=== PATIENT | female | born 1975 | race Caucasian/White ===

== ENCOUNTER 2016-10-22 07:11 | Emergency (ER) | payer BC ==
[2016-10-22 07:19] LABS: Glucose,Whole Blood 88 mg/dL (75-99)
--- NOTE | 2016-10-22 07:25 | ED ---
General Adult HPI - General Stated complaint: unresponsive Time Seen by Provider: 10/22/16 07:11 Source: RN notes reviewed - History of Present Illness Initial comments: Is a 41-year-old female who was not acting right at a store and then she slowly collapsed in a letter to the ground without injury. Since then she has been not responding however all her vitals are normal. Patient is not to mix any history because she still not responsive however it appears she is faking it because she looks away when you open her eyelids and she moves her head and flutters her eyes when you put ammonia under her nose. We have no other history at this time until the patient cooperates - Related Data Previous Rx's Medication Instructions Recorded Methocarbamol [Robaxin-750] 750 mg PO TID PRN #30 tablet 06/16/16 Allergies Allergy/AdvReac Type Severity Reaction Status Date / Time amoxicillin Allergy Rash/Hives Verified 10/22/16 07:19 Penicillins Allergy Rash/Hives Verified 10/22/16 07:19 Sulfa (Sulfonamide Allergy Rash/Hives Verified 10/22/16 07:19 Antibiotics) Review of Systems ROS Statement: Those systems with pertinent positive or pertinent negative responses have been documented in the HPI. ROS Other: All systems not noted in ROS Statement are negative. Past Medical History Past Medical History: No Reported History, Skin Disorder, Thyroid Disorder Additional Past Medical History / Comment(s): lipid storage disease, abdominal wound History of Any Multi-Drug Resistant Organisms: MRSA Date of last positivie culture/infection: 04/20/15 MDRO Source:: Abdomen Past Surgical History: Appendectomy Additional Past Surgical History / Comment(s): biopsy of the left shoulder and right leg by Dr. Sams for diagnosis of lipid storage disease Past Anesthesia/Blood Transfusion Reactions: No Reported Reaction Additional Past Anesthesia/Blood Transfusion Reaction / Comment(s): never received either Past Psychological History: No Psychological Hx Reported Smoking Status: Never smoker Past Alcohol Use History: None Reported Additional Past Alcohol Use History / Comment(s): Patient states she is a nonsmoker. She denies any medical marijuana, marijuana, street drug or alcohol use. She lives at home with her . They do not have any children. There is a bagel in the home. She denies any recent travel. She denies any service. She works at [employer] Past Drug Use History: None Reported - Past Family History Father History Unknown: Yes Additional Family Medical History / Comment(s): pt adopted Mother History Unknown: Yes Additional Family Medical History / Comment(s): pt adopted General Exam - General Exam Comments Initial Comments: GENERAL: Patient is well-developed and well-nourished. Patient is nontoxic and well- hydrated and is in no acute distress. ENT: Neck is soft and supple. No significant lymphadenopathy is noted. Oropharynx is clear. Moist mucous membranes. Neck has full range of motion without eliciting any pain. EYES: The sclera were anicteric and conjunctiva were pink and moist. Extraocular movements were intact and pupils were equal round and reactive to light. Eyelids were unremarkable. PULMONARY: Unlabored respirations. Good breath sounds bilaterally. No audible rales rhonchi or wheezing was noted. CARDIOVASCULAR: There is a regular rate and rhythm without any murmurs gallops or rubs. ABDOMEN: Soft and nontender with normal bowel sounds. No palpable organomegaly was noted. There is no palpable pulsatile mass. SKIN: Skin is clear with no lesions or rashes and otherwise unremarkable. NEUROLOGIC: Patient will not answer questions though I believe she can. MUSCULOSKELETAL: Normal extremities with adequate strength and full range of motion. No lower extremity swelling or edema. No calf tenderness. LYMPHATICS: No significant lymphadenopathy is noted PSYCHIATRIC: Unable to evaluate Course Vital Signs 10/22/16 10/22/16 10/22/16 07:12 07:23 07:35 Temperature 97.6 F Pulse Rate 85 89 85 Respiratory 16 18 18 Rate Blood Pressure 127/71 128/75 128/75 O2 Sat by Pulse 100 100 100 Oximetry Medical Decision Making - Medical Decision Making EKG shows normal sinus rhythm at 97 bpm MO interval 270 QRS is 70 QT interval 346 QTC is 439. Patient's EKG shows no ST segment elevation or depression or T- wave abdomen is noted. I spoke with Dr. 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 He was in agreement that her symptoms did not seem consistent all with her disease. Shortly after patient was breathing and ammonia she was alert and oriented 3. Of course she told me at this point that this was all because of her current team deficiency even though I spoke with Dr. Sams and he assured me it was not. - Lab Data Result diagrams: 10/22/16 07:15 10/22/16 07:15 Lab Results 10/22/16 10/22/16 10/22/16 Range/Units 07:14 07:15 07:15 WBC 3.9 (3.8-10.6) k/uL RBC 4.60 (3.80-5.40) m/uL Hgb 12.9 (11.4-16.0) gm/dL Hct 39.6 (34.0-46.0) % MCV 86.1 (80.0-100.0) fL MCH 28.1 (25.0-35.0) pg MCHC 32.6 (31.0-37.0) g/dL RDW 12.9 (11.5-15.5) % Plt Count 202 (150-450) k/uL Neutrophils % 59 % Lymphocytes % 24 % Monocytes % 10 % Eosinophils % 2 % Basophils % 2 % Neutrophils # 2.3 (1.3-7.7) k/uL Lymphocytes # 0.9 L (1.0-4.8) k/uL Monocytes # 0.4 (0-1.0) k/uL Eosinophils # 0.1 (0-0.7) k/uL Basophils # 0.1 (0-0.2) k/uL Sodium 143 (137-145) mmol/L Potassium 3.9 (3.5-5.1) mmol/L Chloride 107 (98-107) mmol/L Carbon Dioxide 27 (22-30) mmol/L Anion Gap 9 mmol/L BUN 15 (7-17) mg/dL Creatinine 0.66 (0.52-1.04) mg/dL Est GFR (MDRD) Af Amer >60 (>60 ml/min/1.73 sqM) Est GFR (MDRD) Non-Af >60 (>60 ml/min/1.73 sqM) Glucose 96 (74-99) mg/dL POC Glucose (mg/dL) 88 (75-99) mg/dL POC Glu Speedboat [employer] ID ZhouSeferino santosw Plasma Lactic Acid Tino (0.7-2.0) mmol/L Calcium 9.1 (8.4-10.2) mg/dL Magnesium 2.1 (1.6-2.3) mg/dL Total Bilirubin 0.5 (0.2-1.3) mg/dL AST 27 (14-36) U/L ALT 38 (9-52) U/L Alkaline Phosphatase 62 (38-126) U/L Troponin I (0.000-0.034) ng/mL Total Protein 7.6 (6.3-8.2) g/dL Albumin 3.8 (3.5-5.0) g/dL 10/22/16 10/22/16 Range/Units 07:15 07:44 WBC (3.8-10.6) k/uL RBC (3.80-5.40) m/uL Hgb (11.4-16.0) gm/dL Hct (34.0-46.0) % MCV (80.0-100.0) fL MCH (25.0-35.0) pg MCHC (31.0-37.0) g/dL RDW (11.5-15.5) % Plt Count (150-450) k/uL Neutrophils % % Lymphocytes % % Monocytes % % Eosinophils % % Basophils % % Neutrophils # (1.3-7.7) k/uL Lymphocytes # (1.0-4.8) k/uL Monocytes # (0-1.0) k/uL Eosinophils # (0-0.7) k/uL Basophils # (0-0.2) k/uL Sodium (137-145) mmol/L Potassium (3.5-5.1) mmol/L Chloride (98-107) mmol/L Carbon Dioxide (22-30) mmol/L Anion Gap mmol/L BUN (7-17) mg/dL Creatinine (0.52-1.04) mg/dL Est GFR (MDRD) Af Amer (>60 ml/min/1.73 sqM) Est GFR (MDRD) Non-Af (>60 ml/min/1.73 sqM) Glucose (74-99) mg/dL POC Glucose (mg/dL) (75-99) mg/dL POC Glu Speedboat Driver ID Plasma Lactic Acid Tino 1.0 (0.7-2.0) mmol/L Calcium (8.4-10.2) mg/dL Magnesium (1.6-2.3) mg/dL Total Bilirubin (0.2-1.3) mg/dL AST (14-36) U/L ALT (9-52) U/L Alkaline Phosphatase (38-126) U/L Troponin I <0.012 (0.000-0.034) ng/mL Total Protein (6.3-8.2) g/dL Albumin (3.5-5.0) g/dL Disposition Clinical Impression: Carnitine deficiency, Conversion disorder Disposition: HOME SELF-CARE Condition: Good Instructions: Altered Mental Status (ED) Referrals: Jose Francisco Simental MD [Primary Care Provider] - 1-2 days Time of Disposition: 08:59
[2016-10-22 07:27] LABS: Basophils # (A) 0.1 k/uL (0-0.2); Basophils % (A) 2 %; CH 28.1; CHCM 32.8; Eosinophils # (A) 0.1 k/uL (0-0.7); Eosinophils % (A) 2 %; HCT 39.6 % (34.0-46.0); HDW 2.76; HGB 12.9 gm/dL (11.4-16.0); Luc # (Auto) 0.14; Luc % (Auto) 4; Lymphocytes # (A) 0.9 k/uL (1.0-4.8); Lymphocytes % (A) 24 %; MCH 28.1 pg (25.0-35.0); MCHC 32.6 g/dL (31.0-37.0); MCV 86.1 fL (80.0-100.0); Mean Platelet Volume 7.7; Monocytes # (A) 0.4 k/uL (0-1.0); Monocytes % (A) 10 %; Neutrophils # (A) 2.3 k/uL (1.3-7.7); Neutrophils % (A) 59 %; RDW 12.9 % (11.5-15.5); WBC 3.9 k/uL (3.8-10.6); WBC (Perox) 3.88
[2016-10-22 07:44] LABS: ALT 38 U/L (9-52); AST 27 U/L (14-36); Alkaline Phosphatase 62 U/L (38-126); Anion Gap 9 mmol/L; Blood Urea Nitrogen 15 mg/dL (7-17); Calcium 9.1 mg/dL (8.4-10.2); Carbon Dioxide 27 mmol/L (22-30); Chloride 107 mmol/L (98-107); Glucose 96 mg/dL (74-99); Magnesium 2.1 mg/dL (1.6-2.3); Non-African American GFR(MDRD) >60 (>60 ml/min/1.73 sqM); Potassium 3.9 mmol/L (3.5-5.1); Sodium 143 mmol/L (137-145); Total Bilirubin 0.5 mg/dL (0.2-1.3); Total Protein 7.6 g/dL (6.3-8.2)
[2016-10-22 09:40] VITALS: BP 123/67; PULSE 88; RESP 16; TEMP 97.4
== END 2016-10-22 09:40 | disposition home or self-care (01) ==
LOC: EC 07:11
DX: F44.4 Conversion disorder with motor symptom or deficit (principal); E71.40 Disorder of carnitine metabolism, unspecified; Z88.0 Allergy status to penicillin; Z88.2 Allergy status to sulfonamides
CPT/HCPCS: 36415; 80053; 83605; 83735; 84484; 85025; 93005; 99284

== ENCOUNTER 2018-08-28 00:06 | Emergency (ER) | payer BC ==
[2018-08-28 00:11] VITALS: RESP 18
[2018-08-28] MEDS ORDERED: SODIUM CHLORIDE 0.9% 2,000 ML IV STA (00:16)
[2018-08-28 00:54] LABS: Basophils % (A) 0 %; Eosinophils # (A) 0.1 k/uL (0-0.7); Eosinophils % (A) 2 %; HCT 46.6 % (34.0-46.0); Lymphocytes # (A) 0.9 k/uL (1.0-4.8); Lymphocytes % (A) 21 %; MCHC 32.1 g/dL (31.0-37.0); MCV 80.9 fL (80.0-100.0); Mean Platelet Volume 7.7; Monocytes # (A) 0.3 k/uL (0-1.0); Monocytes % (A) 7 %; Neutrophils % (A) 69 %; Platelet Count 238 k/uL (150-450); RBC 5.76 m/uL (3.80-5.40); RDW 13.7 % (11.5-15.5); WBC 4.4 k/uL (3.8-10.6)
[2018-08-28 00:54] LABS: Appearance,Urine Clear (Clear); Bilirubin,Urine Negative (Negative); Blood,Urine Negative (Negative); Color,Urine Yellow; Glucose,Urine (UA) Negative (Negative); Ketones,Urine Negative (Negative); Leukocyte Esterase,Urine Negative (Negative); Nitrite,Urine Negative (Negative); Protein,Urine Negative (Negative); Specific Gravity,Urine 1.022 (1.001-1.035); Urobilinogen,Urine <2.0 mg/dL (<2.0)
[2018-08-28] MEDS ORDERED: ONDANSETRON 4 MG/2 ML VIAL IVP STA (00:56)
[2018-08-28 01:20] LABS: ALT 47 U/L (9-52); AST 32 U/L (14-36); Albumin 4.5 g/dL (3.5-5.0); Alkaline Phosphatase 94 U/L (38-126); Anion Gap 10 mmol/L; Blood Urea Nitrogen 22 mg/dL (7-17); Carbon Dioxide 21 mmol/L (22-30); Chloride 110 mmol/L (98-107); Glucose 107 mg/dL (74-99); Magnesium 1.9 mg/dL (1.6-2.3); Potassium 4.6 mmol/L (3.5-5.1); Sodium 141 mmol/L (137-145); Total Bilirubin 0.5 mg/dL (0.2-1.3); Total Protein 8.7 g/dL (6.3-8.2)
--- NOTE | 2018-08-28 01:31 | ED ---
Nausea/Vomiting/Diarrhea HPI - General Chief complaint: Nausea/Vomiting/Diarrhea Stated complaint: Diarrhea Time Seen by Provider: 08/28/18 00:16 Source: patient Mode of arrival: ambulatory Limitations: no limitations - History of Present Illness Initial comments: Suzanna is a pleasant 43 yo female who presents to the ED with complaint of 12h of diarrhea. Patient reports she has developed rectal discomfort due to frequent stools. She also states she has been having nausea without vomiting and malodorous burps. Patient states she has a history of episodes of diarrhea lasting 3-4 days at a time but has never seen GI for this. She has no known underlying GI pathology or food allergies. She denies any international travel or outdoor activities that would put her at risk of infectious diarrhea. In addition she denies any recent antibiotic use or history of c-diff. - Related Data Home Medications Medication Instructions Recorded Confirmed Aspirin 325 mg PO DAILY PRN 10/22/16 10/22/16 L-Carnitine 1 dose PO Q6H PRN 10/22/16 10/22/16 Previous Rx's Medication Instructions Recorded Dicyclomine [Bentyl] 20 mg PO QID #20 tablet 10/25/17 Ondansetron Odt [Zofran ODT] 4 mg PO Q8HR PRN #20 tab 10/25/17 Dicyclomine [Bentyl] 10 mg PO QID #20 capsule 08/28/18 Allergies Allergy/AdvReac Type Severity Reaction Status Date / Time amoxicillin Allergy Rash/Hives Verified 08/28/18 00:11 doxycycline Allergy Rash/Hives Verified 08/28/18 00:11 Penicillins Allergy Rash/Hives Verified 08/28/18 00:11 Sulfa (Sulfonamide Allergy Rash/Hives Verified 08/28/18 00:11 Antibiotics) Review of Systems ROS Statement: Those systems with pertinent positive or pertinent negative responses have been documented in the HPI. ROS Other: All systems not noted in ROS Statement are negative. Past Medical History Past Medical History: Skin Disorder, Thyroid Disorder Additional Past Medical History / Comment(s): lipid storage disease, abdominal wound History of Any Multi-Drug Resistant Organisms: MRSA Date of last positivie culture/infection: 04/20/15 MDRO Source:: Abdomen Past Surgical History: Appendectomy Additional Past Surgical History / Comment(s): biopsy of the left shoulder and right leg by Dr. Sams for diagnosis of lipid storage disease Past Anesthesia/Blood Transfusion Reactions: No Reported Reaction Additional Past Anesthesia/Blood Transfusion Reaction / Comment(s): never received either Past Psychological History: No Psychological Hx Reported Smoking Status: Never smoker Past Alcohol Use History: None Reported Past Drug Use History: None Reported - Past Family History Father History Unknown: Yes Additional Family Medical History / Comment(s): pt adopted Mother History Unknown: Yes Additional Family Medical History / Comment(s): pt adopted General Exam - General Exam Comments Initial Comments: Physical Exam GENERAL: Patient is well-developed and well-nourished. Patient is nontoxic but appears mildly dehydrated HENT: Normocephalic, Atraumatic. This membranes are dry, appears mildly dehydrated EYES: PERRL, EOMI PULMONARY: Unlabored respirations. No audible rales rhonchi or wheezing was noted. CARDIOVASCULAR: There is a regular rate and rhythm without any murmurs gallops or rubs. ABDOMEN: Soft and nontender with hyperactive bowel sounds. SKIN: Skin is clear with no lesions or rashes and otherwise unremarkable. : Deferred NEUROLOGIC: Patient is alert and oriented x3. Moving all extremities spontaneously MUSCULOSKELETAL: Normal extremities with adequate strength and full range of motion. No lower extremity swelling or edema. No calf tenderness. PSYCHIATRIC: Normal psychiatric evaluation. Limitations: no limitations Limitations: no limitations Course Vital Signs 08/28/18 00:07 Temperature 98.3 F Pulse Rate 95 Respiratory 18 Rate Blood Pressure 111/67 O2 Sat by Pulse 95 Oximetry Medical Decision Making - Medical Decision Making Patient was seen and evaluated, history obtained from patient Labs and IVF ordered Zofran and bentyl ordered Patient refused bentyl because she did not want a shot Labs unremarkable Patient received Zofran and IVF, she was re-evaluated, continues to have diarrhea, agreeable to bentyl now Patient was advised to continue supportive care, stay hydrated Patient referred to GI for follow up Return parameters discussed, patient discharged home in stable condition - Lab Data Result diagrams: 08/28/18 00:40 08/28/18 00:40 Lab Results 08/28/18 08/28/18 08/28/18 Range/Units 00:35 00:40 00:40 WBC 4.4 (3.8-10.6) k/uL RBC 5.76 H (3.80-5.40) m/uL Hgb 15.0 (11.4-16.0) gm/dL Hct 46.6 H (34.0-46.0) % MCV 80.9 (80.0-100.0) fL MCH 26.0 (25.0-35.0) pg MCHC 32.1 (31.0-37.0) g/dL RDW 13.7 (11.5-15.5) % Plt Count 238 (150-450) k/uL Neutrophils % 69 % Lymphocytes % 21 % Monocytes % 7 % Eosinophils % 2 % Basophils % 0 % Neutrophils # 3.0 (1.3-7.7) k/uL Lymphocytes # 0.9 L (1.0-4.8) k/uL Monocytes # 0.3 (0-1.0) k/uL Eosinophils # 0.1 (0-0.7) k/uL Basophils # 0.0 (0-0.2) k/uL Sodium 141 (137-145) mmol/L Potassium 4.6 (3.5-5.1) mmol/L Chloride 110 H (98-107) mmol/L Carbon Dioxide 21 L (22-30) mmol/L Anion Gap 10 mmol/L BUN 22 H (7-17) mg/dL Creatinine 0.56 (0.52-1.04) mg/dL Est GFR (CKD-EPI)AfAm >90 (>60 ml/min/1.73 sqM) Est GFR (CKD-EPI)NonAf >90 (>60 ml/min/1.73 sqM) Glucose 107 H (74-99) mg/dL Calcium 10.0 (8.4-10.2) mg/dL Magnesium 1.9 (1.6-2.3) mg/dL Total Bilirubin 0.5 (0.2-1.3) mg/dL AST 32 (14-36) U/L ALT 47 (9-52) U/L Alkaline Phosphatase 94 (38-126) U/L Total Protein 8.7 H (6.3-8.2) g/dL Albumin 4.5 (3.5-5.0) g/dL Urine Color Yellow Urine Appearance Clear (Clear) Urine pH 5.0 (5.0-8.0) Ur Specific Spring 1.022 (1.001-1.035) Urine Protein Negative (Negative) Urine Glucose (UA) Negative (Negative) Urine Ketones Negative (Negative) Urine Blood Negative (Negative) Urine Nitrite Negative (Negative) Urine Bilirubin Negative (Negative) Urine Urobilinogen <2.0 (<2.0) mg/dL Ur Leukocyte Esterase Negative (Negative) Disposition Clinical Impression: Diarrhea Disposition: HOME SELF-CARE Condition: Stable Instructions (If sedation given, give patient instructions): Acute Diarrhea (ED ) Prescriptions: Dicyclomine [Bentyl] 10 mg PO QID #20 capsule Is patient prescribed a controlled substance at d/c from ED?: No Referrals: Jose Francisco Simental MD [Primary Care Provider] - 1-2 days
[2018-08-28] MEDS: DICYCLOMINE 10 MG/ML 2 ML AMP IM STA ×2 (01:54→03:41)
[2018-08-28 04:30] VITALS: BP 113/78; PULSE 74; TEMP 98.2
== END 2018-08-28 04:08 | disposition home or self-care (01) ==
LOC: EC 00:06
DX: R19.7 Diarrhea, unspecified (principal); R11.0 Nausea; Z53.20 Procedure and treatment not carried out because of patient's decision for unspecified reasons; Z88.0 Allergy status to penicillin; Z88.1 Allergy status to other antibiotic agents; Z88.2 Allergy status to sulfonamides; Z90.89 Acquired absence of other organs
CPT/HCPCS: 99284; 96374; 96361 ×2; 96372; 36415; 80053; 83735; 85025; 81003; J0500; J2405

== ENCOUNTER 2018-08-31 22:40 | Emergency (ER) | payer BC ==
[2018-08-31 22:57] VITALS: TEMP 97.7
[2018-09-01] MEDS ORDERED: SODIUM CHLORIDE 0.9% 1,000 ML IV STA (00:37)
[2018-09-01 01:14] LABS: Basophils % (A) 0 %; Eosinophils # (A) 0.1 k/uL (0-0.7); Eosinophils % (A) 4 %; HCT 40.4 % (34.0-46.0); HGB 13.3 gm/dL (11.4-16.0); Lymphocytes # (A) 0.9 k/uL (1.0-4.8); Lymphocytes % (A) 29 %; MCH 26.3 pg (25.0-35.0); MCHC 32.8 g/dL (31.0-37.0); MCV 80.1 fL (80.0-100.0); Mean Platelet Volume 6.9; Monocytes # (A) 0.2 k/uL (0-1.0); Monocytes % (A) 7 %; Neutrophils # (A) 1.7 k/uL (1.3-7.7); Neutrophils % (A) 57 %; Platelet Count 210 k/uL (150-450); RBC 5.05 m/uL (3.80-5.40); RDW 13.4 % (11.5-15.5)
[2018-09-01 01:25] LABS: ALT 53 U/L (9-52); AST 33 U/L (14-36); Albumin 3.7 g/dL (3.5-5.0); Alkaline Phosphatase 100 U/L (38-126); Amylase 49 U/L (30-110); Anion Gap 6 mmol/L; Blood Urea Nitrogen 18 mg/dL (7-17); Calcium 9.3 mg/dL (8.4-10.2); Carbon Dioxide 26 mmol/L (22-30); Chloride 107 mmol/L (98-107); Glucose 99 mg/dL (74-99); Lipase 369 U/L (23-300); Potassium 4.4 mmol/L (3.5-5.1); Sodium 139 mmol/L (137-145); Total Bilirubin 0.5 mg/dL (0.2-1.3); Total Protein 7.3 g/dL (6.3-8.2)
[2018-09-01] MEDS ORDERED: DIPHENOX-ATROP STARTER PACK 8 TAB BTL PO STA (02:04)
[2018-09-01] MEDS ORDERED: LIDOCAINE VISCOUS 2% 15 ML CUP MUCOUS MEM ONE (02:04)
--- NOTE | 2018-09-01 02:06 | ED ---
General Adult HPI - General Source: patient Mode of arrival: ambulatory Limitations: no limitations <Aisha Rivas - Last Filed: 09/01/18 04:00> <Joann Rangel - Last Filed: 09/02/18 03:51> - General Chief complaint: Nausea/Vomiting/Diarrhea Stated complaint: Diarrhea Time Seen by Provider: 09/01/18 00:11 - History of Present Illness Initial comments: 43-year-old female patient presents to the emergency department today for evaluation of diarrhea that started on . Patient states she's had multiple episodes of watery diarrhea daily since its onset. Patient states she does have history of intermittent episodes of diarrhea for the last couple of years. States that she was seen and evaluated here in Friday and was discharged home. She states that symptoms have not improved. States she is now having intense perianal discomfort. States that she has passed some blood in the stool. States that she is having cramping to her bilateral thighs. She denies any fevers or chills with this. Denies any recent travel or sick contacts. Denies any recent antibiotic use. Patient denies any recent rash, shortness breath, chest pain, abdominal pain, nausea, vomiting, back pain, numbness, tingling, dizziness, weakness, hematuria, dysuria, urinary urgency, urinary frequency, headache, visual changes, or any other complaints. (Aisha Rivas) - Related Data Home Medications Medication Instructions Recorded Confirmed Dicyclomine [Bentyl] 20 mg PO QID PRN 08/31/18 08/31/18 Previous Rx's Medication Instructions Recorded Diphenoxylate HCl/Atropine 1 tab PO 5XD PRN 3 Days #15 tab 09/01/18 [Lomotil 2.5-0.025 mg Tablet] Allergies Allergy/AdvReac Type Severity Reaction Status Date / Time amoxicillin Allergy Rash/Hives Verified 08/31/18 23:16 doxycycline Allergy Rash/Hives Verified 08/31/18 23:16 Penicillins Allergy Rash/Hives Verified 08/31/18 23:16 Sulfa (Sulfonamide Allergy Rash/Hives Verified 08/31/18 23:16 Antibiotics) Review of Systems ROS Other: All systems not noted in ROS Statement are negative. <Aisha Rivas - Last Filed: 09/01/18 04:00> ROS Other: All systems not noted in ROS Statement are negative. <Joann Rangel P - Last Filed: 09/02/18 03:51> ROS Statement: Those systems with pertinent positive or pertinent negative responses have been documented in the HPI. Past Medical History Past Medical History: Skin Disorder, Thyroid Disorder Additional Past Medical History / Comment(s): lipid storage disease, abdominal wound History of Any Multi-Drug Resistant Organisms: MRSA Date of last positivie culture/infection: 04/20/15 MDRO Source:: Abdomen Past Surgical History: Appendectomy Additional Past Surgical History / Comment(s): biopsy of the left shoulder and right leg by Dr. Sams for diagnosis of lipid storage disease Past Anesthesia/Blood Transfusion Reactions: No Reported Reaction Additional Past Anesthesia/Blood Transfusion Reaction / Comment(s): never received either Past Psychological History: No Psychological Hx Reported Smoking Status: Never smoker Past Alcohol Use History: None Reported Past Drug Use History: None Reported - Past Family History Father History Unknown: Yes Additional Family Medical History / Comment(s): pt adopted Mother History Unknown: Yes Additional Family Medical History / Comment(s): pt adopted <RobAisha M - Last Filed: 09/01/18 04:00> General Exam Limitations: no limitations General appearance: alert, in no apparent distress, other (Physical well- developed, well-nourished adult female patient in no acute distress. Vital signs upon presentation are temperature 97.7F, pulse 94, respirations 18, blood pressure 120/80, pulse ox 100% on room air.) Eye exam: Present: normal appearance, PERRL, EOMI. Absent: scleral icterus, conjunctival injection, periorbital swelling ENT exam: Present: normal exam, normal oropharynx, mucous membranes moist Respiratory exam: Present: normal lung sounds bilaterally. Absent: respiratory distress, wheezes, rales, rhonchi, stridor Cardiovascular Exam: Present: regular rate, normal rhythm, normal heart sounds. Absent: systolic murmur, diastolic murmur, rubs, gallop, clicks GI/Abdominal exam: Present: soft, tenderness (Lower abdominal tenderness), normal bowel sounds. Absent: distended, guarding, rebound, rigid Neurological exam: Present: alert, oriented X3, CN II-XII intact Psychiatric exam: Present: normal affect, normal mood Skin exam: Present: warm, dry, intact, normal color. Absent: rash <Aisha Rivas - Last Filed: 09/01/18 04:00> Vital Signs 08/31/18 09/01/18 09/01/18 22:54 01:40 03:13 Temperature 97.7 F 97.7 F Pulse Rate 94 89 88 Respiratory 18 16 19 Rate Blood Pressure 120/80 118/71 102/62 O2 Sat by Pulse 100 100 100 Oximetry Medical Decision Making - Lab Data Result diagrams: 09/01/18 01:02 09/01/18 01:02 <Aisha Rivas - Last Filed: 09/01/18 04:00> - Lab Data Result diagrams: 09/01/18 01:02 09/01/18 01:02 <Joann Rangel - Last Filed: 09/02/18 03:51> - Medical Decision Making 43-year-old female patient presented to the emergency department today for evaluation of persistent diarrhea. Physical examination did reveal some mild lower abdominal tenderness. Labs reviewed and are unremarkable. Stool has been sent for culture. Patient will be given Lomotil to assist with symptoms. She is instructed to follow-up with her primary care physician for recheck as soon as possible. Return parameters were discussed in detail. She verbalizes understanding and agrees with this plan. (Aisha Rivas) I was available for consultation in the emergency department. The history and physical exam were done by the midlevel provider. I was consulted for this patient's care. I reviewed the case with the midlevel provider and based on their presentation of the patient, I agree with the assessment, medical decision making and plan of care as documented. (Joann Rangel) - Lab Data Lab Results 09/01/18 09/01/18 09/01/18 Range/Units 01:02 01:02 02:19 WBC 3.0 L (3.8-10.6) k/uL RBC 5.05 (3.80-5.40) m/uL Hgb 13.3 (11.4-16.0) gm/dL Hct 40.4 (34.0-46.0) % MCV 80.1 (80.0-100.0) fL MCH 26.3 (25.0-35.0) pg MCHC 32.8 (31.0-37.0) g/dL RDW 13.4 (11.5-15.5) % Plt Count 210 (150-450) k/uL Neutrophils % 57 % Lymphocytes % 29 % Monocytes % 7 % Eosinophils % 4 % Basophils % 0 % Neutrophils # 1.7 (1.3-7.7) k/uL Lymphocytes # 0.9 L (1.0-4.8) k/uL Monocytes # 0.2 (0-1.0) k/uL Eosinophils # 0.1 (0-0.7) k/uL Basophils # 0.0 (0-0.2) k/uL Sodium 139 (137-145) mmol/L Potassium 4.4 (3.5-5.1) mmol/L Chloride 107 (98-107) mmol/L Carbon Dioxide 26 (22-30) mmol/L Anion Gap 6 mmol/L BUN 18 H (7-17) mg/dL Creatinine 0.50 L (0.52-1.04) mg/dL Est GFR (CKD-EPI)AfAm >90 (>60 ml/min/1.73 sqM) Est GFR (CKD-EPI)NonAf >90 (>60 ml/min/1.73 sqM) Glucose 99 (74-99) mg/dL Calcium 9.3 (8.4-10.2) mg/dL Total Bilirubin 0.5 (0.2-1.3) mg/dL AST 33 (14-36) U/L ALT 53 H (9-52) U/L Alkaline Phosphatase 100 (38-126) U/L Total Protein 7.3 (6.3-8.2) g/dL Albumin 3.7 (3.5-5.0) g/dL Amylase 49 (30-110) U/L Lipase 369 H (23-300) U/L Stool Lactoferrin NEGATIVE (NEGATIVE) C. difficile (EIA) Intrp (Negative) 09/01/18 Range/Units 02:19 WBC (3.8-10.6) k/uL RBC (3.80-5.40) m/uL Hgb (11.4-16.0) gm/dL Hct (34.0-46.0) % MCV (80.0-100.0) fL MCH (25.0-35.0) pg MCHC (31.0-37.0) g/dL RDW (11.5-15.5) % Plt Count (150-450) k/uL Neutrophils % % Lymphocytes % % Monocytes % % Eosinophils % % Basophils % % Neutrophils # (1.3-7.7) k/uL Lymphocytes # (1.0-4.8) k/uL Monocytes # (0-1.0) k/uL Eosinophils # (0-0.7) k/uL Basophils # (0-0.2) k/uL Sodium (137-145) mmol/L Potassium (3.5-5.1) mmol/L Chloride (98-107) mmol/L Carbon Dioxide (22-30) mmol/L Anion Gap mmol/L BUN (7-17) mg/dL Creatinine (0.52-1.04) mg/dL Est GFR (CKD-EPI)AfAm (>60 ml/min/1.73 sqM) Est GFR (CKD-EPI)NonAf (>60 ml/min/1.73 sqM) Glucose (74-99) mg/dL Calcium (8.4-10.2) mg/dL Total Bilirubin (0.2-1.3) mg/dL AST (14-36) U/L ALT (9-52) U/L Alkaline Phosphatase (38-126) U/L Total Protein (6.3-8.2) g/dL Albumin (3.5-5.0) g/dL Amylase (30-110) U/L Lipase (23-300) U/L Stool Lactoferrin (NEGATIVE) C. difficile (EIA) Intrp Negative (Negative) Disposition Is patient prescribed a controlled substance at d/c from ED?: No Time of Disposition: 02:06 <Aisha Rivas - Last Filed: 09/01/18 04:00> <Joann Rangel - Last Filed: 09/02/18 03:51> Clinical Impression: Acute diarrhea Disposition: HOME SELF-CARE Condition: Good Instructions (If sedation given, give patient instructions): Acute Diarrhea (ED ) Additional Instructions: Increase fluids. Take medications as directed. Follow-up with your primary care physician for recheck in 1-2 days. Return to the emergency department immediately for any new, worsening, or concerning symptoms Prescriptions: Diphenoxylate HCl/Atropine [Lomotil 2.5-0.025 mg Tablet] 1 tab PO 5XD PRN 3 Days #15 tab PRN Reason: Diarrhea Referrals: Jose Francisco Simental MD [Primary Care Provider] - 1-2 days
[2018-09-01 03:14] VITALS: BP 102/62; PULSE 88; RESP 19
== END 2018-09-01 03:02 | disposition home or self-care (01) ==
LOC: EC 22:40
DX: R19.7 Diarrhea, unspecified (principal); R10.819 Abdominal tenderness, unspecified site; R29.898 Other symptoms and signs involving the musculoskeletal system; Z86.14 Personal history of Methicillin resistant Staphylococcus aureus infection; Z88.0 Allergy status to penicillin; Z88.1 Allergy status to other antibiotic agents; Z88.2 Allergy status to sulfonamides; Z90.49 Acquired absence of other specified parts of digestive tract
CPT/HCPCS: 36415; 80053; 82150; 83630; 83690; 85025; 87324; 96360; 99284

== ENCOUNTER 2018-09-15 10:45 | Day surgery (SDC) | payer BC ==
[2018-09-14 09:05] VITALS: BMI 33.9
[~2018-09-15 10:45] MED LIST: LACTATED RINGERS 1,000 ML IV SCH
[2018-09-15 12:07] VITALS: RESP 16; TEMP 97.8
[2018-09-15] MEDS ORDERED: PROPOFOL 10 MG/ML 20 ML VIAL IV ONE (13:23)
[2018-09-15] MEDS ORDERED: LIDOCAINE 1% INJ 10MG/ML (20 ML MDV) ONE (13:23)
--- NOTE | 2018-09-15 13:59 | P.PCN ---
Date of Procedure: 09/15/18 Procedure(s) Performed: Procedure: Colonoscopy and biopsy. Preoperative diagnosis: Chronic diarrhea. Postoperative diagnosis: 1. Poor preparation, otherwise, exam of the colon and terminal ileum within normal limits. 2. Biopsies obtained from the terminal ileum and right colon. Preparation: HalfLytely prep. Sedation: Was provided by anesthesia. Brief clinical history: The patient is a 43-year-old female who was evaluated in the office earlier this month regarding diarrhea that she had intermittently since 2014 with worsening of the symptoms over the last year. The patient is adopted and this evaluation is to assess for inflammatory bowel disease or neoplasia. Procedure: With the patient on her left lateral decubitus position and after informed consent and adequate sedation, the perianal area was inspected and it did not show any fissures or fistulas. There were no masses felt on digital rectal examination. The Olympus CFH 190L video colonoscope was then inserted in the rectum in the usual fashion and advanced to the cecum. I intubated the ileocecal valve and examined the terminal ileum. The preparation was poor and there was thick fecal secretions and fecal debris that I could not wash totally. The mucosa, otherwise, appeared healthy with no evidence of inflammatory bowel disease. No obvious polyps or tumors or any obvious diverticular disease. I obtained biopsies from the terminal ileum and right colon then the endoscope was withdrawn. The patient tolerated the procedure well. Plan: The patient was reassured. She will follow-up in the office next month as planned and will await biopsy results. For screening for colon cancer I would recommend repeat exam after more thorough preparation in the next year or 2 especially since she is adopted and we have no known colon risk status.
[2018-09-15 14:07] VITALS: BP 122/79; PULSE 94
== END 2018-09-15 14:47 | disposition home or self-care (01) ==
LOC: ORWHC2ENDO 10:45
DX: R19.7 Diarrhea, unspecified (principal); E07.9 Disorder of thyroid, unspecified; E75.6 Lipid storage disorder, unspecified; Z88.1 Allergy status to other antibiotic agents; Z88.0 Allergy status to penicillin; Z88.2 Allergy status to sulfonamides
CPT/HCPCS: 81025; 88305; 45380; J2001; J2704

== ENCOUNTER 2018-10-15 23:56 | Emergency (ER) | payer BC ==
[2018-10-16 00:01] VITALS: TEMP 98
[2018-10-16] MEDS ORDERED: IBUPROFEN 600 MG TAB PO STA (01:08)
[2018-10-16] MEDS ORDERED: TOPICAL SKIN ADHESIVE 1 EACH AMP TOPICAL ONE (01:10)
--- NOTE | 2018-10-16 01:31 | XR ---
EXAM: XR Left Finger(s), 2 or More Views CLINICAL HISTORY: Laceration TECHNIQUE: Frontal, lateral and oblique views of finger(s) of the left hand. COMPARISON: No relevant prior studies available. FINDINGS: Bones/joints: Unremarkable. No acute fracture. No dislocation. Soft tissues: Unremarkable. No radiopaque foreign body. IMPRESSION: Normal x-rays of the visualized left fingers.
--- NOTE | 2018-10-16 01:42 | ED ---
Wound/Laceration HPI - General Source: patient Mode of arrival: ambulatory Limitations: no limitations <Aisha Rivas - Last Filed: 10/16/18 13:18> <Joann Rangel - Last Filed: 10/16/18 21:54> - General Chief Complaint: Wound/Laceration Stated Complaint: Lft Index Finger Lac Time Seen by Provider: 10/16/18 00:55 - History of Present Illness Initial Comments: 43-year-old female patient presents to the emergency department today for evaluation of laceration to the tip of her left index finger. Patient states she was at work using a knife when she slipped and cut her finger. Patient states she did clean the wound was able to get the bleeding to stop rather easily. Patient states that she did hear a grinding noise when she did associate is unsure if the laceration reach the bone. She denies any difficulty with range of motion. Denies any numbness or tingling. States her tetanus was updated within the last 5 years. She denies any other injuries. Denies any use of anticoagulant or antiplatelet medications. Patient denies any headache, neck pain, back pain, chest pain, shortness of breath, dizziness, weakness, abdominal pain, nausea, vomiting, or difficulties with bowel movements or urination. (Aisha Rivas) - Related Data Home Medications Medication Instructions Recorded Confirmed No Known Home Medications 09/14/18 09/15/18 Allergies Allergy/AdvReac Type Severity Reaction Status Date / Time amoxicillin Allergy Rash/Hives Verified 10/16/18 00:02 doxycycline Allergy Rash/Hives Verified 10/16/18 00:02 Penicillins Allergy Rash/Hives Verified 10/16/18 00:02 Sulfa (Sulfonamide Allergy Rash/Hives Verified 10/16/18 00:02 Antibiotics) Review of Systems ROS Other: All systems not noted in ROS Statement are negative. <Aisha Rivas - Last Filed: 10/16/18 13:18> ROS Other: All systems not noted in ROS Statement are negative. <Joann Rangel - Last Filed: 10/16/18 21:54> ROS Statement: Those systems with pertinent positive or pertinent negative responses have been documented in the HPI. Past Medical History Past Medical History: Skin Disorder, Thyroid Disorder Additional Past Medical History / Comment(s): lipid storage disease, abdominal wound History of Any Multi-Drug Resistant Organisms: MRSA Date of last positivie culture/infection: 04/20/15 MDRO Source:: Abdomen Past Surgical History: Appendectomy Additional Past Surgical History / Comment(s): biopsy of the left shoulder and right leg by Dr. Sams for diagnosis of lipid storage disease Past Anesthesia/Blood Transfusion Reactions: No Reported Reaction, Motion Sickness Additional Past Anesthesia/Blood Transfusion Reaction / Comment(s): never received either Past Psychological History: No Psychological Hx Reported Smoking Status: Never smoker Past Alcohol Use History: None Reported Past Drug Use History: None Reported - Past Family History Father History Unknown: Yes Additional Family Medical History / Comment(s): pt adopted Mother History Unknown: Yes Additional Family Medical History / Comment(s): pt adopted <Aisha Rivas M - Last Filed: 10/16/18 13:18> General Exam Limitations: no limitations General appearance: alert, in no apparent distress, other (This is a well- developed, well-nourished adult female patient in no acute distress. Vital signs upon presentation are temperature 98.0F, pulse 109, respirations 20, blood pressure 152/77, pulse ox 96% on room air.) Respiratory exam: Present: normal lung sounds bilaterally. Absent: respiratory distress, wheezes, rales, rhonchi, stridor Cardiovascular Exam: Present: regular rate, normal rhythm, normal heart sounds. Absent: systolic murmur, diastolic murmur, rubs, gallop, clicks Extremities exam: Present: full ROM, normal capillary refill, other (There is a 1 cm laceration to the distal tip to the left index finger. No nail involvement. Bleeding is controlled. Skin is otherwise pink, warm, dry. Cap refills less than 3 seconds. Radial pulses 2+ and equal bilaterally.). Absent: normal inspection, tenderness, pedal edema, joint swelling, calf tenderness Neurological exam: Present: alert, oriented X3, CN II-XII intact Psychiatric exam: Present: normal affect, normal mood Skin exam: Present: warm, dry, intact, normal color. Absent: rash <Aisha Rivas - Last Filed: 10/16/18 13:18> Course Vital Signs 10/15/18 10/16/18 23:59 01:54 Temperature 98 F 98 F Pulse Rate 109 H 79 Respiratory 20 18 Rate Blood Pressure 152/77 144/74 O2 Sat by Pulse 96 97 Oximetry Procedures - Laceration Laceration #1 Consent Obtained: verbal consent Indication: laceration Site: other (Left index finger) Size (cm): 1 Description: linear Depth: simple, single layer Type of Sutures: other (Exofin skin adhesive) Patient Tolerated Procedure: well, no complications <Aisha Rivas - Last Filed: 10/16/18 13:18> Medical Decision Making - Radiology Data Radiology results: report reviewed, image reviewed <Aisha Rivas - Last Filed: 10/16/18 13:18> <Joann Rangel - Last Filed: 10/16/18 21:54> - Medical Decision Making 43-year-old female patient percents to the emergency department today for evaluation of laceration to his left index finger. Physical examination did reveal a 1 cm laceration to the distal tip of the left index finger. No nail involvement. X-ray was obtained and showed no evidence of bony abnormality. Wound was cleansed and repaired as exofin skin adhesive. Patient tolerated procedure well. To be discharged home at this time to follow-up with the primary care physician for recheck in 1-2 days. Return parameters were discussed in detail. She verbalizes understanding and agrees with this plan. (Aisha Rivas) I was available for consultation in the emergency department. The history and physical exam were done by the midlevel provider. I was consulted for this patient's care. I reviewed the case with the midlevel provider and based on their presentation of the patient, I agree with the assessment, medical decision making and plan of care as documented. (Joann Rangel) - Radiology Data Three-view of the left fingers are obtained. Report was reviewed in its entirety. Impression by Dr. Lin shows normal x-ray of the visualized l eft fingers. (Aisha Rivas) Disposition Is patient prescribed a controlled substance at d/c from ED?: No Time of Disposition: 01:42 <Aisha Rivas - Last Filed: 10/16/18 13:18> <Joann Rangel - Last Filed: 10/16/18 21:54> Clinical Impression: Laceration of left index finger Disposition: HOME SELF-CARE Condition: Good Instructions (If sedation given, give patient instructions): Finger Laceration (ED), Skin Adhesive Care (ED) Additional Instructions: Keep area clean and dry. Do not pick or pull at glue. Monitor for signs of infection which includes redness, swelling, drainage of pus, fever, or chills. Follow-up with the primary care physician for recheck in 1-2 days. Return to the emergency department immediately for any new, worsening, or concerning symptoms. Referrals: Jose Francisco Simental MD [Primary Care Provider] - 1-2 days
[2018-10-16 01:54] VITALS: BP 144/74; PULSE 79; RESP 18
== END 2018-10-16 01:54 | disposition home or self-care (01) ==
LOC: EC 23:56
DX: S61.211A Laceration without foreign body of left index finger without damage to nail, initial encounter (principal); Z86.14 Personal history of Methicillin resistant Staphylococcus aureus infection; Z88.0 Allergy status to penicillin; Z88.1 Allergy status to other antibiotic agents; Z88.2 Allergy status to sulfonamides; W26.0XXA Contact with knife, initial encounter
CPT/HCPCS: 12001; 99283

== ENCOUNTER → 2019-02-05 | Outpatient (CLI) | payer BC ==
--- NOTE | 2019-02-05 12:35 | US ---
EXAMINATION TYPE: US pelvis complete transvag DATE OF EXAM: 02/05/2019 COMPARISON: NONE CLINICAL HISTORY: D25.9 Leiomyoma of uterus, unspecified. TECHNIQUE: Transvaginal (TV) and Transabdominal (TA) . Transabdominal sonographic images of the pel vis were acquired. Transvaginal sonographic images were medically necessary to better assess the fol lowing anatomy: myometrium and right ovary Date of LMP: approximately 01/07/19 EXAM MEASUREMENTS: Uterus: 8.5 x 6.2 x 4.6 cm Endometrial Stripe: 0.8 cm Right Ovary: 3.0 x 2.0 x 1.2 cm Left Ovary: 4.8 x 3.6 x 3.7 cm 1. Uterus: Anteverted; multiple Nabothian Cysts in cervix with largest as complex cyst = 0.9 x 0.9 x 0.6cm; multiple uterine fibroids with largest heterogeneous leiomyoma = 2.0 x 2.0 x 2.3cm in upper uterus. There are at least 2 smaller probable leiomyomas present. 2. Endometrium: thickness is wnl for day 28LMP 3. Right Ovary: wnl 4. Left Ovary: enlarged ovary, multiple follicles with largest simple follicular cyst = 2.7 x 2.4 x 1.9cm Spectral, color and waveform doppler imaging shows good arterial and venous flow within the ovaries ; there is no evidence for ovarian torsion. 5. Bilateral Adnexa: wnl 6. Posterior cul-de-sac: wnl IMPRESSION: 1. Heterogenous uterus containing multiple uterine probable leiomyomas with the largest measuring up to 2.3 cm. These appear intramural and there are at least 3 lesions seen. 2. Multiple left ovarian follicles with dominant follicle measuring up to 2.7 cm, simple appearing an d likely physiologic in nature.
== END | disposition home or self-care (01) ==
LOC: RADUSWWP 10:59
PROVIDERS: ATTEND Obstetrics & Gynecology
DX: N85.9 Noninflammatory disorder of uterus, unspecified (principal); D25.9 Leiomyoma of uterus, unspecified
CPT/HCPCS: 76830; 76856

== ENCOUNTER 2019-03-10 20:37 | Emergency (ER) | payer BC ==
[2019-03-10] MEDS ORDERED: MORPHINE SULFATE 4 MG/ML SYRINGE IV STA (21:27)
[2019-03-10] MEDS ORDERED: SODIUM CHLORIDE 0.9% 1,000 ML IV STA (21:27)
[2019-03-10 21:38] LABS: Basophils % (A) 1 %; Eosinophils # (A) 0.1 k/uL (0-0.7); Eosinophils % (A) 3 %; HCT 40.7 % (34.0-46.0); HGB 13.5 gm/dL (11.4-16.0); Lymphocytes # (A) 1.2 k/uL (1.0-4.8); Lymphocytes % (A) 31 %; MCH 27.4 pg (25.0-35.0); MCHC 33.2 g/dL (31.0-37.0); MCV 82.5 fL (80.0-100.0); Mean Platelet Volume 7.3; Monocytes # (A) 0.3 k/uL (0-1.0); Monocytes % (A) 8 %; Neutrophils # (A) 2.3 k/uL (1.3-7.7); Neutrophils % (A) 56 %; Platelet Count 181 k/uL (150-450); RBC 4.93 m/uL (3.80-5.40); RDW 13.2 % (11.5-15.5); WBC 4.1 k/uL (3.8-10.6)
[2019-03-10 21:48] LABS: ALT 25 U/L (9-52); AST 22 U/L (14-36); African American GFR (CKD) >90 (>60 ml/min/1.73 sqM); Albumin 3.7 g/dL (3.5-5.0); Alkaline Phosphatase 80 U/L (38-126); Anion Gap 7 mmol/L; Blood Urea Nitrogen 14 mg/dL (7-17); Calcium 8.7 mg/dL (8.4-10.2); Carbon Dioxide 24 mmol/L (22-30); Chloride 108 mmol/L (98-107); Glucose 95 mg/dL (74-99); Potassium 3.9 mmol/L (3.5-5.1); Sodium 139 mmol/L (137-145); Total Bilirubin 0.4 mg/dL (0.2-1.3); Total Protein 7.4 g/dL (6.3-8.2)
[2019-03-10 22:30] LABS: Appearance,Urine Cloudy (Clear); Bacteria,Urine Occasional /hpf; Bilirubin,Urine Negative (Negative); Blood,Urine Large (Negative); Color,Urine Light Red; Glucose,Urine (UA) Negative (Negative); Ketones,Urine Negative (Negative); Leukocyte Esterase,Urine Large (Negative); Mucus,Urine Occasional /hpf; Nitrite,Urine Negative (Negative); Protein,Urine 1+ (Negative); RBC,Urine >182 /hpf (0-5); Specific Gravity,Urine 1.024 (1.001-1.035); Squamous Epithelial Cell,Urine 2 /hpf (0-4); Urobilinogen,Urine <2.0 mg/dL (<2.0); WBC,Urine 42 /hpf (0-5)
--- NOTE | 2019-03-10 23:08 | US ---
EXAM: US Pelvis, Transvaginal US Duplex Arterial/Venous of the Pelvis, Complete CLINICAL HISTORY: ITS.REASON US Reason: Pain TECHNIQUE: Real-time transvaginal pelvic ultrasound (complete) with image documentation. Transvaginal imaging was used for better evaluation of the endometrium and adnexa. Real-time duplex ultrasound scan of the arterial and venous flow of the pelvis with color Doppler flow and spectral waveform analysis. COMPARISON: Pelvic ultrasound dated 02/05/2019. FINDINGS: Uterus/cervix: Heterogeneous myometrial echotexture which can be seen with leiomyomatous uterus or adenomyosis. Uterus measures 8.8 x 4.7 x 5. 4 cm. Endometrial stripe measures up to 4 mm. Nabothian cysts are seen in the cervix. Right ovary: Right ovary measures 3 x 1.5 x 1.9 cm. No torsion. Left ovary: Left ovary measures 2.9 x 2.6 x 2.2 cm. No torsion. Free fluid: No free fluid. Bladder: Empty bladder which cannot be evaluated with this probe. IMPRESSION: 1. No sonographic evidence of ovarian torsion. 2. Heterogeneous myometrial echotexture which can be seen with leiomyomatous uterus or adenomyosis.
--- NOTE | 2019-03-10 23:20 | CT ---
EXAM: CT Abdomen and Pelvis With Intravenous Contrast CLINICAL HISTORY: ITS.REASON CT Reason: abdominal pain TECHNIQUE: Axial computed tomography images of the abdomen and pelvis with intravenous contrast. CTDI is 36.57 mGy and DLP is 1680.8 mGy-cm. This CT exam was performed using one or more of the following dose reduction techniques: automated exposure control, adjustment of the mA and/or kV according to patient size, and/or use of iterative reconstruction technique. COMPARISON: Pelvic ultrasound 03/10/2019. FINDINGS: Lung bases: Unremarkable. No mass. No consolidation. ABDOMEN: Liver: Unremarkable. No mass. Gallbladder and bile ducts: Unremarkable. No calcified stones. No ductal dilation. Pancreas: Unremarkable. No mass. No ductal dilation. Spleen: Unremarkable. No splenomegaly. Adrenals: Unremarkable. No mass. Kidneys and ureters: Left renal cyst measuring up to 1 cm. No hydronephrosis. Stomach and bowel: Unremarkable. No obstruction. No mucosal thickening. PELVIS: Appendix: No findings to suggest acute appendicitis. Bladder: Unremarkable. No mass. Reproductive: Heterogeneous enhancement in the uterus with lobulated contour likely representing leiomyomatous uterus. ABDOMEN and PELVIS: Intraperitoneal space: Unremarkable. No free air. No significant fluid collection. Bones/joints: Mild degenerative change in the spine. No acute fracture. No dislocation. Soft tissues: Unremarkable. Vasculature: Unremarkable. No abdominal aortic aneurysm. Lymph nodes: Unremarkable. No enlarged lymph nodes. IMPRESSION: No acute abnormality in the abdomen or pelvis.
[2019-03-11] MEDS ORDERED: NITROFURANTOIN MONOHYD/M-CRYST 100 MG CAP PO STA (00:05)
--- NOTE | 2019-03-11 00:12 | ED ---
Abdominal Pain HPI - General Chief Complaint: Abdominal Pain Stated Complaint: Ovarian Cyst Time Seen by Provider: 03/10/19 20:43 Source: patient Mode of arrival: ambulatory Limitations: no limitations - History of Present Illness Initial Comments: The patient is a 43-year-old female who presents to the emergency department with reported left lower quadrant abdominal pain. She does admit to a history of similar before when she had a ruptured ovarian cyst. She states that her pain started around 7:30 this evening. It awoke her from sleep. She describes it as a sharp shooting sensation she did not take any medications for her symptoms. She denies any associated dysuria, hematuria or difficulty voiding. She currently is on day 2 of her menstrual cycle. Reports heavy vaginal bleeding. This is common for her. She denies any abnormal vaginal discharge. No concern for infections. No concern for . She denies any constipation, melanotic stools, hematochezia or diarrhea. No history of kidney stones. No ripping or tearing sensation to her back. She denies any pain into her lower extremity is. No back or flank pain. No fevers or chills. There are no other alleviating, precipitating or modifying factors - Related Data Previous Rx's Medication Instructions Recorded Ibuprofen 400 mg PO Q6HR PRN #15 tablet 03/11/19 Nitrofurantoin Monohyd/M-Cryst 100 mg PO Q12HR #14 cap 03/11/19 [Macrobid] traMADol HCl [Ultram] 50 mg PO Q6HR PRN 3 Days #12 tab 03/11/19 Allergies Allergy/AdvReac Type Severity Reaction Status Date / Time amoxicillin Allergy Rash/Hives Verified 03/10/19 20:47 doxycycline Allergy Rash/Hives Verified 03/10/19 20:47 Penicillins Allergy Rash/Hives Verified 03/10/19 20:47 Sulfa (Sulfonamide Allergy Rash/Hives Verified 03/10/19 20:47 Antibiotics) Review of Systems ROS Statement: Those systems with pertinent positive or pertinent negative responses have been documented in the HPI. ROS Other: All systems not noted in ROS Statement are negative. Past Medical History Past Medical History: Skin Disorder, Thyroid Disorder Additional Past Medical History / Comment(s): lipid storage disease, abdominal wound History of Any Multi-Drug Resistant Organisms: MRSA Date of last positivie culture/infection: 04/20/15 MDRO Source:: Abdomen Past Surgical History: Appendectomy Additional Past Surgical History / Comment(s): biopsy of the left shoulder and right leg by Dr. Sams for diagnosis of lipid storage disease Past Anesthesia/Blood Transfusion Reactions: No Reported Reaction, Motion Sickness Additional Past Anesthesia/Blood Transfusion Reaction / Comment(s): never received either Past Psychological History: No Psychological Hx Reported Smoking Status: Never smoker Past Alcohol Use History: None Reported Past Drug Use History: None Reported - Past Family History Father History Unknown: Yes Additional Family Medical History / Comment(s): pt adopted Mother History Unknown: Yes Additional Family Medical History / Comment(s): pt adopted General Exam Limitations: no limitations General appearance: alert, in no apparent distress Head exam: Present: atraumatic, normocephalic, normal inspection Eye exam: Present: normal appearance, PERRL, EOMI. Absent: scleral icterus, conjunctival injection, periorbital swelling ENT exam: Present: normal exam, mucous membranes moist Neck exam: Present: normal inspection. Absent: tenderness, meningismus, lymphadenopathy Respiratory exam: Present: normal lung sounds bilaterally. Absent: respiratory distress, wheezes, rales, rhonchi, stridor Cardiovascular Exam: Present: regular rate, normal rhythm, normal heart sounds. Absent: systolic murmur, diastolic murmur, rubs, gallop, clicks GI/Abdominal exam: Present: soft, tenderness (left lower quadrant. No peritoneal signs), normal bowel sounds. Absent: distended, guarding, rebound, rigid Extremities exam: Present: normal inspection, full ROM, normal capillary refill. Absent: tenderness, pedal edema, joint swelling, calf tenderness Back exam: Present: normal inspection Neurological exam: Present: alert, oriented X3, CN II-XII intact Psychiatric exam: Present: normal affect, normal mood Skin exam: Present: warm, dry, intact, normal color. Absent: rash Course Vital Signs 03/10/19 03/11/19 20:39 00:00 Temperature 97.5 F L 98.0 F Pulse Rate 90 66 Respiratory 20 18 Rate Blood Pressure 137/89 101/70 O2 Sat by Pulse 99 100 Oximetry Medical Decision Making - Medical Decision Making Upon arrival the patient is placed into room 26. She is hooked up to continuous pulse ox and cardiac monitoring. Peripheral IV is established. The patient is given 4 mg's of morphine for pain. I did recommend laboratory studies. The patient does provide a urinalysis. She is sent over for an ultrasound of her pelvis as well as a CT of her abdomen and pelvis. Upon return of the results they are discuss with the patient. Her UA is remarkable for blood as well as white blood cells. There is 42 white blood cells and occasional bacteria. Because of this I did recommend treatment with antibiotics. Patient did agree to this. She is given a dose of Macrobid. She'll be sent home with a prescription for Macrobid. I discussed the results of the CT and ultrasound the patient. She does have flow to both ovaries. Her uterus has a heterogeneous texture consistent with possible fibroids versus adenomyosis. Patient symptoms do seem consistent with adenomyosis. The patient does report a history of fibroids. She did have pain relief with the morphine. Reevaluation de monstrates no peritoneal signs. The patient will also be given a prescription for tramadol. Side effect profiles discussed with the patient. No history of seizure activity. The patient needs to follow up with Dr. Torres who is her [employer] for further evaluation. The patient has any new or worsening symptoms she should return to the emergency room. The patient was in agreement with the treatment plan she was discharged home in stable condition - Lab Data Result diagrams: 03/10/19 21:25 03/10/19 21:25 Lab Results 03/10/19 03/10/19 03/10/19 Range/Units 21:25 21:25 21:56 WBC 4.1 (3.8-10.6) k/uL RBC 4.93 (3.80-5.40) m/uL Hgb 13.5 (11.4-16.0) gm/dL Hct 40.7 (34.0-46.0) % MCV 82.5 (80.0-100.0) fL MCH 27.4 (25.0-35.0) pg MCHC 33.2 (31.0-37.0) g/dL RDW 13.2 (11.5-15.5) % Plt Count 181 (150-450) k/uL Neutrophils % 56 % Lymphocytes % 31 % Monocytes % 8 % Eosinophils % 3 % Basophils % 1 % Neutrophils # 2.3 (1.3-7.7) k/uL Lymphocytes # 1.2 (1.0-4.8) k/uL Monocytes # 0.3 (0-1.0) k/uL Eosinophils # 0.1 (0-0.7) k/uL Basophils # 0.0 (0-0.2) k/uL Sodium 139 (137-145) mmol/L Potassium 3.9 (3.5-5.1) mmol/L Chloride 108 H (98-107) mmol/L Carbon Dioxide 24 (22-30) mmol/L Anion Gap 7 mmol/L BUN 14 (7-17) mg/dL Creatinine 0.55 (0.52-1.04) mg/dL Est GFR (CKD-EPI)AfAm >90 (>60 ml/min/1.73 sqM) Est GFR (CKD-EPI)NonAf >90 (>60 ml/min/1.73 sqM) Glucose 95 (74-99) mg/dL Calcium 8.7 (8.4-10.2) mg/dL Total Bilirubin 0.4 (0.2-1.3) mg/dL AST 22 (14-36) U/L ALT 25 (9-52) U/L Alkaline Phosphatase 80 (38-126) U/L Total Protein 7.4 (6.3-8.2) g/dL Albumin 3.7 (3.5-5.0) g/dL Lipase 403 H (23-300) U/L Urine Color Urine Appearance (Clear) Urine pH (5.0-8.0) Ur Specific [place] (1.001-1.035) Urine Protein (Negative) Urine Glucose (UA) (Negative) Urine Ketones (Negative) Urine Blood (Negative) Urine Nitrite (Negative) Urine Bilirubin (Negative) Urine Urobilinogen (<2.0) mg/dL Ur Leukocyte Esterase (Negative) Urine RBC (0-5) /hpf Urine WBC (0-5) /hpf Ur Squamous Epith Cells (0-4) /hpf Urine Bacteria (None) /hpf Urine Mucus (None) /hpf Urine HCG, Qual Not Detected (Not Detectd) 03/10/19 Range/Units 21:56 WBC (3.8-10.6) k/uL RBC (3.80-5.40) m/uL Hgb (11.4-16.0) gm/dL Hct (34.0-46.0) % MCV (80.0-100.0) fL MCH (25.0-35.0) pg MCHC (31.0-37.0) g/dL RDW (11.5-15.5) % Plt Count (150-450) k/uL Neutrophils % % Lymphocytes % % Monocytes % % Eosinophils % % Basophils % % Neutrophils # (1.3-7.7) k/uL Lymphocytes # (1.0-4.8) k/uL Monocytes # (0-1.0) k/uL Eosinophils # (0-0.7) k/uL Basophils # (0-0.2) k/uL Sodium (137-145) mmol/L Potassium (3.5-5.1) mmol/L Chloride (98-107) mmol/L Carbon Dioxide (22-30) mmol/L Anion Gap mmol/L BUN (7-17) mg/dL Creatinine (0.52-1.04) mg/dL Est GFR (CKD-EPI)AfAm (>60 ml/min/1.73 sqM) Est GFR (CKD-EPI)NonAf (>60 ml/min/1.73 sqM) Glucose (74-99) mg/dL Calcium (8.4-10.2) mg/dL Total Bilirubin (0.2-1.3) mg/dL AST (14-36) U/L ALT (9-52) U/L Alkaline Phosphatase (38-126) U/L Total Protein (6.3-8.2) g/dL Albumin (3.5-5.0) g/dL Lipase (23-300) U/L Urine Color Light Red Urine Appearance Cloudy H (Clear) Urine pH 5.0 (5.0-8.0) Ur Specific [place] 1.024 (1.001-1.035) Urine Protein 1+ H (Negative) Urine Glucose (UA) Negative (Negative) Urine Ketones Negative (Negative) Urine Blood Large H (Negative) Urine Nitrite Negative (Negative) Urine Bilirubin Negative (Negative) Urine Urobilinogen <2.0 (<2.0) mg/dL Ur Leukocyte Esterase Large H (Negative) Urine RBC >182 H (0-5) /hpf Urine WBC 42 H (0-5) /hpf Ur Squamous Epith Cells 2 (0-4) /hpf Urine Bacteria Occasional H (None) /hpf Urine Mucus Occasional H (None) /hpf Urine HCG, Qual (Not Detectd) Disposition Clinical Impression: Pelvic pain, Menorrhagia Disposition: HOME SELF-CARE Condition: Stable Additional Instructions: Please follow-up with Dr. Torres within one week. Return to the emergency room for any new or worsening symptoms Prescriptions: Ibuprofen 400 mg PO Q6HR PRN #15 tablet PRN Reason: Pain Nitrofurantoin Monohyd/M-Cryst [Macrobid] 100 mg PO Q12HR #14 cap traMADol HCl [Ultram] 50 mg PO Q6HR PRN 3 Days #12 tab PRN Reason: Pain Is patient prescribed a controlled substance at d/c from ED?: Yes When asked, does pt state using other controlled substances?: No If prescribed controlled substance>3 days was MAPS reviewed?: Prescribed <3 Days If opioid is for acute pain is fill amount 7 days or less?: Yes If Rx opioid, was Start Talking consent form obtained?: Yes Referrals: Jose Francisco Simental MD [Primary Care Provider] - 1-2 days Time of Disposition: 00:11
[2019-03-11 00:18] VITALS: BP 101/70; PULSE 66; RESP 18; TEMP 98
== END 2019-03-11 00:35 | disposition home or self-care (01) ==
LOC: EC 20:37
DX: N92.0 Excessive and frequent menstruation with regular cycle (principal); R10.2 Pelvic and perineal pain; Z87.828 Personal history of other (healed) physical injury and trauma; Z87.42 Personal history of other diseases of the female genital tract; Z86.14 Personal history of Methicillin resistant Staphylococcus aureus infection; Z90.49 Acquired absence of other specified parts of digestive tract; Z88.0 Allergy status to penicillin; Z88.1 Allergy status to other antibiotic agents; Z88.2 Allergy status to sulfonamides
CPT/HCPCS: 99284; 96374; 96361 ×3; 36415; 80053; 83690; 85025; 81001; 81025; 93975; 76830; 74177; J2270; Q9967

== ENCOUNTER 2019-04-25 02:28 | Emergency (ER) | payer BC ==
[2019-04-25 02:53] VITALS: TEMP 97.5
[2019-04-25 03:17] LABS: ALT 44 U/L (9-52); AST 30 U/L (14-36); African American GFR (CKD) >90 (>60 ml/min/1.73 sqM); Albumin 4.1 g/dL (3.5-5.0); Alkaline Phosphatase 84 U/L (38-126); Anion Gap 11 mmol/L; Blood Urea Nitrogen 18 mg/dL (7-17); Carbon Dioxide 23 mmol/L (22-30); Chloride 107 mmol/L (98-107); Glucose 104 mg/dL (74-99); Potassium 3.9 mmol/L (3.5-5.1); Sodium 141 mmol/L (137-145); Total Bilirubin 0.2 mg/dL (0.2-1.3); Total Protein 7.9 g/dL (6.3-8.2)
[2019-04-25 03:18] LABS: Basophils % (A) 1 %; Eosinophils # (A) 0.1 k/uL (0-0.7); Eosinophils % (A) 2 %; HCT 40.3 % (34.0-46.0); HGB 13.6 gm/dL (11.4-16.0); Lymphocytes # (A) 1.4 k/uL (1.0-4.8); Lymphocytes % (A) 31 %; MCH 28.3 pg (25.0-35.0); MCHC 33.9 g/dL (31.0-37.0); MCV 83.6 fL (80.0-100.0); Mean Platelet Volume 6.7; Monocytes # (A) 0.3 k/uL (0-1.0); Monocytes % (A) 7 %; Neutrophils # (A) 2.6 k/uL (1.3-7.7); Neutrophils % (A) 56 %; Platelet Count 176 k/uL (150-450); RBC 4.81 m/uL (3.80-5.40); RDW 12.8 % (11.5-15.5); WBC 4.6 k/uL (3.8-10.6)
[2019-04-25 03:27] LABS: Appearance,Urine Clear (Clear); Bilirubin,Urine Negative (Negative); Blood,Urine Negative (Negative); Color,Urine Yellow; Glucose,Urine (UA) Negative (Negative); Hyaline Casts,Urine 1 /lpf (0-2); Ketones,Urine Negative (Negative); Leukocyte Esterase,Urine Small (Negative); Mucus,Urine Rare /hpf; Nitrite,Urine Negative (Negative); Protein,Urine Negative (Negative); RBC,Urine <1 /hpf (0-5); Squamous Epithelial Cell,Urine 3 /hpf (0-4); Urobilinogen,Urine <2.0 mg/dL (<2.0)
--- NOTE | 2019-04-25 03:32 | XR ---
EXAMINATION TYPE: XR KUB DATE OF EXAM: 04/25/2019 COMPARISON: 10/25/2017 HISTORY: Abdominal pain TECHNIQUE: 2 views upright FINDINGS: There is no sign of intestinal obstruction or pneumoperitoneum. Lung bases are clear. There are no pathologic calcifications over the kidneys. Bowel gas pattern is normal. Fecal pattern is nor mal. IMPRESSION: Nonacute abdomen. No change.
--- NOTE | 2019-04-25 03:57 | ED ---
Abdominal Pain HPI - General Chief Complaint: Abdominal Pain Stated Complaint: Abd Pain Time Seen by Provider: 04/25/19 02:42 Source: patient Mode of arrival: ambulatory Limitations: no limitations - History of Present Illness Initial Comments: Patient is a 43-year-old female who presents to the emergency department today for evaluation of lower abdominal pain. Patient reports sudden lower abdominal pain beginning earlier this evening pain was not associated with any fevers chills nausea vomiting or change in bowel or bladder habits. Patient denies any vaginal discharge or concern for sexual transmitted infections. Patient states she is in a monogamous relationship, he is not experiencing any vaginal discharge. Patient reports the pain was severe but has been improving since onset. Upon further discussion of the labs and urinalysis patient does recall that she has experienced pain like this in the past and was told that it was related to her menstrual cycle or ovulation. She has no history of ovarian cysts. - Related Data Previous Rx's Medication Instructions Recorded Ibuprofen 400 mg PO Q6HR PRN #15 tablet 03/11/19 Nitrofurantoin Monohyd/M-Cryst 100 mg PO Q12HR #14 cap 03/11/19 [Macrobid] traMADol HCl [Ultram] 50 mg PO Q6HR PRN 3 Days #12 tab 03/11/19 Allergies Allergy/AdvReac Type Severity Reaction Status Date / Time amoxicillin Allergy Rash/Hives Verified 04/25/19 02:36 doxycycline Allergy Rash/Hives Verified 04/25/19 02:36 Penicillins Allergy Rash/Hives Verified 04/25/19 02:36 Sulfa (Sulfonamide Allergy Rash/Hives Verified 04/25/19 02:36 Antibiotics) Review of Systems ROS Statement: Those systems with pertinent positive or pertinent negative responses have been documented in the HPI. ROS Other: All systems not noted in ROS Statement are negative. Past Medical History Past Medical History: Skin Disorder, Thyroid Disorder Additional Past Medical History / Comment(s): lipid storage disease, abdominal wound, History of Any Multi-Drug Resistant Organisms: MRSA Date of last positivie culture/infection: 04/20/15 MDRO Source:: Abdomen Past Surgical History: Appendectomy Additional Past Surgical History / Comment(s): biopsy of the left shoulder and right leg by Dr. Sams for diagnosis of lipid storage disease Past Anesthesia/Blood Transfusion Reactions: No Reported Reaction, Motion Sickness Additional Past Anesthesia/Blood Transfusion Reaction / Comment(s): never received either Past Psychological History: No Psychological Hx Reported Smoking Status: Never smoker Past Alcohol Use History: None Reported Past Drug Use History: None Reported - Past Family History Father History Unknown: Yes Additional Family Medical History / Comment(s): pt adopted Mother History Unknown: Yes Additional Family Medical History / Comment(s): pt adopted General Exam - General Exam Comments Initial Comments: Physical Exam GENERAL: Patient is well-developed and well-nourished. Patient is nontoxic and well- hydrated and is in no distress. HENT: Normocephalic, Atraumatic. EYES: PERRL, EOMI PULMONARY: Unlabored respirations. No audible rales rhonchi or wheezing was noted. CARDIOVASCULAR: There is a regular rate and rhythm without any murmurs gallops or rubs. ABDOMEN: Soft and nontender with normal bowel sounds. non peritoneal SKIN: Skin is clear with no lesions or rashes and otherwise unremarkable. : Deferred NEUROLOGIC: Patient is alert and oriented x3. Moving all extremities spontaneously MUSCULOSKELETAL: Normal extremities with adequate strength and full range of motion. No lower extremity swelling or edema. No calf tenderness. PSYCHIATRIC: Normal psychiatric evaluation. Limitations: no limitations Course Vital Signs 04/25/19 04/25/19 02:34 05:02 Temperature 97.5 F L 97.5 F L Pulse Rate 100 98 Respiratory 17 18 Rate Blood Pressure 107/64 110/68 O2 Sat by Pulse 95 100 Oximetry Medical Decision Making - Medical Decision Making The patient was seen and evaluated history the patient She has had resolution of her pain since arrival in the emergency department Labs and imaging were unremarkable urinalysis with no signs of infection patient declines pelvic exam does not believe she did have a sexual transmitted infection isn't having any vaginal discharge patient is in fact exactly midcycle I discussed with her possibility that pain is secondary to mittelschmerz. Patient is familiar with this is comfortable with plan for discharge home supportive care return parameters were discussed and patient was discharged home in stable condition. - Lab Data Result diagrams: 04/25/19 02:57 04/25/19 02:57 Lab Results 04/25/19 04/25/19 04/25/19 Range/Units 02:57 02:57 02:57 WBC 4.6 (3.8-10.6) k/uL RBC 4.81 (3.80-5.40) m/uL Hgb 13.6 (11.4-16.0) gm/dL Hct 40.3 (34.0-46.0) % MCV 83.6 (80.0-100.0) fL MCH 28.3 (25.0-35.0) pg MCHC 33.9 (31.0-37.0) g/dL RDW 12.8 (11.5-15.5) % Plt Count 176 (150-450) k/uL Neutrophils % 56 % Lymphocytes % 31 % Monocytes % 7 % Eosinophils % 2 % Basophils % 1 % Neutrophils # 2.6 (1.3-7.7) k/uL Lymphocytes # 1.4 (1.0-4.8) k/uL Monocytes # 0.3 (0-1.0) k/uL Eosinophils # 0.1 (0-0.7) k/uL Basophils # 0.0 (0-0.2) k/uL Sodium 141 (137-145) mmol/L Potassium 3.9 (3.5-5.1) mmol/L Chloride 107 (98-107) mmol/L Carbon Dioxide 23 (22-30) mmol/L Anion Gap 11 mmol/L BUN 18 H (7-17) mg/dL Creatinine 0.64 (0.52-1.04) mg/dL Est GFR (CKD-EPI)AfAm >90 (>60 ml/min/1.73 sqM) Est GFR (CKD-EPI)NonAf >90 (>60 ml/min/1.73 sqM) Glucose 104 H (74-99) mg/dL Plasma Lactic Acid Tino 0.9 (0.7-2.0) mmol/L Calcium 9.0 (8.4-10.2) mg/dL Total Bilirubin 0.2 (0.2-1.3) mg/dL AST 30 (14-36) U/L ALT 44 (9-52) U/L Alkaline Phosphatase 84 (38-126) U/L Total Protein 7.9 (6.3-8.2) g/dL Albumin 4.1 (3.5-5.0) g/dL Lipase 411 H (23-300) U/L Urine Color Urine Appearance (Clear) Urine pH (5.0-8.0) Ur Specific [place] (1.001-1.035) Urine Protein (Negative) Urine Glucose (UA) (Negative) Urine Ketones (Negative) Urine Blood (Negative) Urine Nitrite (Negative) Urine Bilirubin (Negative) Urine Urobilinogen (<2.0) mg/dL Ur Leukocyte Esterase (Negative) Urine RBC (0-5) /hpf Urine WBC (0-5) /hpf Ur Squamous Epith Cells (0-4) /hpf Hyaline Casts (0-2) /lpf Urine Mucus (None) /hpf Urine HCG, Qual (Not Detectd) 04/25/19 04/25/19 Range/Units 03:10 03:10 WBC (3.8-10.6) k/uL RBC (3.80-5.40) m/uL Hgb (11.4-16.0) gm/dL Hct (34.0-46.0) % MCV (80.0-100.0) fL MCH (25.0-35.0) pg MCHC (31.0-37.0) g/dL RDW (11.5-15.5) % Plt Count (150-450) k/uL Neutrophils % % Lymphocytes % % Monocytes % % Eosinophils % % Basophils % % Neutrophils # (1.3-7.7) k/uL Lymphocytes # (1.0-4.8) k/uL Monocytes # (0-1.0) k/uL Eosinophils # (0-0.7) k/uL Basophils # (0-0.2) k/uL Sodium (137-145) mmol/L Potassium (3.5-5.1) mmol/L Chloride (98-107) mmol/L Carbon Dioxide (22-30) mmol/L Anion Gap mmol/L BUN (7-17) mg/dL Creatinine (0.52-1.04) mg/dL Est GFR (CKD-EPI)AfAm (>60 ml/min/1.73 sqM) Est GFR (CKD-EPI)NonAf (>60 ml/min/1.73 sqM) Glucose (74-99) mg/dL Plasma Lactic Acid Tino (0.7-2.0) mmol/L Calcium (8.4-10.2) mg/dL Total Bilirubin (0.2-1.3) mg/dL AST (14-36) U/L ALT (9-52) U/L Alkaline Phosphatase (38-126) U/L Total Protein (6.3-8.2) g/dL Albumin (3.5-5.0) g/dL Lipase (23-300) U/L Urine Color Yellow Urine Appearance Clear (Clear) Urine pH 5.0 (5.0-8.0) Ur Specific [place] 1.020 (1.001-1.035) Urine Protein Negative (Negative) Urine Glucose (UA) Negative (Negative) Urine Ketones Negative (Negative) Urine Blood Negative (Negative) Urine Nitrite Negative (Negative) Urine Bilirubin Negative (Negative) Urine Urobilinogen <2.0 (<2.0) mg/dL Ur Leukocyte Esterase Small H (Negative) Urine RBC <1 (0-5) /hpf Urine WBC 1 (0-5) /hpf Ur Squamous Epith Cells 3 (0-4) /hpf Hyaline Casts 1 (0-2) /lpf Urine Mucus Rare H (None) /hpf Urine HCG, Qual Not Detected (Not Detectd) Disposition Clinical Impression: Abdominal pain Disposition: HOME SELF-CARE Condition: Stable Instructions (If sedation given, give patient instructions): Johana (ED), Abdominal Pain (ED) Is patient prescribed a controlled substance at d/c from ED?: No Referrals: Jose Francisco Simental MD [Primary Care Provider] - 1-2 days
[2019-04-25] MEDS ORDERED: KETOROLAC 30 MG/ML 1 ML VIAL IVP ONE (04:21)
[2019-04-25] MEDS ORDERED: IBUPROFEN 600 MG STARTER PACK 4 TAB BTL PO STA (04:21)
[2019-04-25 05:06] VITALS: BP 110/68; PULSE 98; RESP 18
== END 2019-04-25 05:06 | disposition home or self-care (01) ==
LOC: EC 02:28
DX: R10.30 Lower abdominal pain, unspecified (principal); Z88.0 Allergy status to penicillin; Z88.1 Allergy status to other antibiotic agents; Z88.2 Allergy status to sulfonamides; Z86.14 Personal history of Methicillin resistant Staphylococcus aureus infection; Z90.49 Acquired absence of other specified parts of digestive tract; Z53.20 Procedure and treatment not carried out because of patient's decision for unspecified reasons
CPT/HCPCS: 36415; 80053; 83605; 83690; 85025; 81001; 81025; 74018; 99284; 96374; J1885

== ENCOUNTER 2019-07-30 11:43 | Emergency (ER) | payer BC ==
[2019-07-30] MEDS ORDERED: IPRATROPIUM-ALBUTEROL 3 ML NEB INHALATION STA (12:47)
--- NOTE | 2019-07-30 12:59 | XR ---
EXAMINATION TYPE: XR chest 2V DATE OF EXAM: 07/30/2019 COMPARISON: NONE HISTORY: Recently treated for respiratory respiratory infection with persistent productive cough TECHNIQUE: Frontal and lateral views of the chest are obtained. FINDINGS: There is no focal air space opacity, pleural effusion, or pneumothorax seen. The cardiac silhouette size is upper limits of normal. The osseous structures are intact. IMPRESSION: No suspicious acute infiltrate.
--- NOTE | 2019-07-30 13:29 | ED ---
General Adult HPI - General Chief complaint: Upper Respiratory Infection Stated complaint: URI Time Seen by Provider: 07/30/19 12:17 Source: patient, RN notes reviewed Mode of arrival: ambulatory Limitations: no limitations - History of Present Illness Initial comments: 43-year-old female presents to the emergency determine for chief complaint of cough. Patient states she had a cough about a week and a half ago but started a Z-Blake and that improved for a few days. Patient states that now she is told to cough again for the past 3 days. States she is also congested. She denies any significant shortness of breath. Denies any history of asthma, COPD. Denies smoking history.Patient has no other complaints at this time including shortness of breath, chest pain, abdominal pain, nausea or vomiting, headache, or visual changes. - Related Data Previous Rx's Medication Instructions Recorded Ibuprofen 400 mg PO Q6HR PRN #15 tablet 03/11/19 Nitrofurantoin Monohyd/M-Cryst 100 mg PO Q12HR #14 cap 03/11/19 [Macrobid] traMADol HCl [Ultram] 50 mg PO Q6HR PRN 3 Days #12 tab 03/11/19 Albuterol Inhaler [Ventolin Hfa 1 - 2 puff INHALATION Q6HR PRN #1 07/30/19 Inhaler] inhaler predniSONE 50 mg PO DAILY #5 tablet 07/30/19 Allergies Allergy/AdvReac Type Severity Reaction Status Date / Time amoxicillin Allergy Rash/Hives Verified 07/30/19 11:46 doxycycline Allergy Rash/Hives Verified 07/30/19 11:46 Penicillins Allergy Rash/Hives Verified 07/30/19 11:46 Sulfa (Sulfonamide Allergy Rash/Hives Verified 07/30/19 11:46 Antibiotics) Review of Systems ROS Statement: Those systems with pertinent positive or pertinent negative responses have been documented in the HPI. ROS Other: All systems not noted in ROS Statement are negative. Past Medical History Past Medical History: Skin Disorder, Thyroid Disorder Additional Past Medical History / Comment(s): lipid storage disease, abdominal wound History of Any Multi-Drug Resistant Organisms: MRSA Date of last positivie culture/infection: 04/20/15 MDRO Source:: Abdomen Past Surgical History: Appendectomy Additional Past Surgical History / Comment(s): biopsy of the left shoulder and right leg by Dr. Sams for diagnosis of lipid storage disease Past Anesthesia/Blood Transfusion Reactions: No Reported Reaction, Motion Sickness Additional Past Anesthesia/Blood Transfusion Reaction / Comment(s): never received either Past Psychological History: No Psychological Hx Reported Smoking Status: Never smoker Past Alcohol Use History: None Reported Past Drug Use History: None Reported - Past Family History Father History Unknown: Yes Additional Family Medical History / Comment(s): pt adopted Mother History Unknown: Yes Additional Family Medical History / Comment(s): pt adopted General Exam Limitations: no limitations General appearance: alert, in no apparent distress Head exam: Present: atraumatic, normocephalic, normal inspection Eye exam: Present: normal appearance, PERRL, EOMI. Absent: scleral icterus, conjunctival injection, periorbital swelling ENT exam: Present: normal exam, normal oropharynx, mucous membranes moist, TM's normal bilaterally, normal external ear exam Neck exam: Present: normal inspection, full ROM. Absent: tenderness, meningismus, lymphadenopathy Respiratory exam: Present: decreased breath sounds (diminished breath sounds n oted bilaterally however no wheezing present.). Absent: respiratory distress, wheezes, rales, rhonchi, stridor Cardiovascular Exam: Present: regular rate, normal rhythm, normal heart sounds. Absent: systolic murmur, diastolic murmur, rubs, gallop, clicks Neurological exam: Present: alert Course Vital Signs 07/30/19 07/30/19 07/30/19 11:47 13:05 13:19 Temperature 98.8 F Pulse Rate 104 H 95 99 Respiratory 18 Rate Blood Pressure 126/84 O2 Sat by Pulse 97 Oximetry Medical Decision Making - Medical Decision Making Vitals are stable. Patient is well appearing. Lung sounds are somewhat diminished however no wheezing present. A chest x-ray shows no suspicious acute infiltrate. Patient was given breathing treatment had significant improvement in symptoms. Therefore she'll be started on a steroid as well as an inhaler. She has already taken azithromycin and as there is no pneumonia on chest x-ray she will not be treated with antibiotics at this time. She will follow up with primary care return here if she has any worsening symptoms. Disposition Clinical Impression: Cough Disposition: HOME SELF-CARE Condition: Good Instructions (If sedation given, give patient instructions): Upper Respiratory Infection (ED) Additional Instructions: Please take Motrin and Tylenol if he develop fevers. Otherwise take prednisone as directed. Use inhaler as directed. Follow-up with your doctor in one to 2 days. If you have any worsening symptoms return here to the emergency department. Prescriptions: predniSONE 50 mg PO DAILY #5 tablet Albuterol Inhaler [Ventolin Hfa Inhaler] 1 - 2 puff INHALATION Q6HR PRN #1 inhaler PRN Reason: Shortness Of Breath Is patient prescribed a controlled substance at d/c from ED?: No Referrals: Jose Francisco Simental MD [Primary Care Provider] - 1-2 days Time of Disposition: 13:28
[2019-07-30 13:56] VITALS: BP 122/78; PULSE 90; RESP 20; TEMP 98.2
== END 2019-07-30 13:50 | disposition home or self-care (01) ==
LOC: EC 11:43
DX: R05 Cough (principal); Z88.0 Allergy status to penicillin; Z88.1 Allergy status to other antibiotic agents; Z88.2 Allergy status to sulfonamides
CPT/HCPCS: 71046; 94640; 99283

== ENCOUNTER 2019-10-09 21:16 | Emergency (ER) | payer BC ==
[2019-10-09 22:00] VITALS: BP 144/79; RESP 16; TEMP 98.1
--- NOTE | 2019-10-09 22:00 | XR ---
EXAMINATION TYPE: XR chest 1V portable DATE OF EXAM: 10/09/2019 COMPARISON: 07/30/2019 HISTORY: Cough TECHNIQUE: FINDINGS: Heart is normal. Lungs are clear of infiltrate. There is no pleural effusion. Bony thorax i s intact. There is no heart failure. IMPRESSION: No active cardiopulmonary disease. No change.
[2019-10-09] MEDS ORDERED: predniSONE 20 MG TAB PO STA (22:05)
--- NOTE | 2019-10-09 22:10 | ED ---
General Adult HPI - General Chief complaint: Upper Respiratory Infection Stated complaint: SOB Time Seen by Provider: 10/09/19 21:21 Source: patient Mode of arrival: ambulatory Limitations: no limitations - History of Present Illness Initial comments: Patient is a 44-year-old female presenting to emergency Department with chief complaint of, shortness of breath. Patient states the cough has been ongoing for the past several days and is nonproductive in nature. Patient states today she also developed some shortness of breath. Patient states her "bronchial tubes are closing". Patient states 3 months ago she had a very similar condition which felt exactly the same and was treated with an inhaler and oral steroids which helped with the symptoms. Patient denies any chest pain back pain abdominal pain. Denies any nausea vomiting diarrhea. Denies any night sweats fevers or chills. Denies hemoptysis, unilateral leg swelling, recent hospitalizations or surgeries, history of DVT or PE, coagulopathies, or hormone use. Nonsmoker. Reports history of seasonal ALLERGIES. Denies direct Covid exposure. - Related Data Previous Rx's Medication Instructions Recorded Ibuprofen 400 mg PO Q6HR PRN #15 tablet 03/11/19 Nitrofurantoin Monohyd/M-Cryst 100 mg PO Q12HR #14 cap 03/11/19 [Macrobid] traMADol HCl [Ultram] 50 mg PO Q6HR PRN 3 Days #12 tab 03/11/19 Albuterol Inhaler (Bulk) [Ventolin 1 - 2 puff INHALATION Q6HR PRN #1 07/30/19 Hfa Inhaler (Bulk)] inhaler predniSONE 50 mg PO DAILY #5 tablet 07/30/19 Albuterol Inhaler (Bulk) [Ventolin 1 - 2 puff INHALATION RT-Q6H PRN 10/09/19 Hfa Inhaler (Bulk)] #1 inhaler predniSONE 50 mg PO DAILY #5 tab 10/09/19 Allergies Allergy/AdvReac Type Severity Reaction Status Date / Time amoxicillin Allergy Rash/Hives Verified 10/09/19 21:17 doxycycline Allergy Rash/Hives Verified 10/09/19 21:17 Penicillins Allergy Rash/Hives Verified 10/09/19 21:17 Sulfa (Sulfonamide Allergy Rash/Hives Verified 10/09/19 21:17 Antibiotics) Review of Systems ROS Statement: Those systems with pertinent positive or pertinent negative responses have been documented in the HPI. ROS Other: All systems not noted in ROS Statement are negative. Past Medical History Past Medical History: Skin Disorder, Thyroid Disorder Additional Past Medical History / Comment(s): lipid storage disease, abdominal wound, History of Any Multi-Drug Resistant Organisms: MRSA Date of last positivie culture/infection: 04/20/15 MDRO Source:: Abdomen Past Surgical History: Appendectomy Additional Past Surgical History / Comment(s): biopsy of the left shoulder and right leg by Dr. Sams for diagnosis of lipid storage disease Past Anesthesia/Blood Transfusion Reactions: No Reported Reaction, Motion Sickness Additional Past Anesthesia/Blood Transfusion Reaction / Comment(s): never received either Past Psychological History: No Psychological Hx Reported Smoking Status: Never smoker Past Alcohol Use History: None Reported Past Drug Use History: None Reported - Past Family History Father History Unknown: Yes Additional Family Medical History / Comment(s): pt adopted Mother History Unknown: Yes Additional Family Medical History / Comment(s): pt adopted General Exam Limitations: no limitations General appearance: alert, in no apparent distress, obese Head exam: Present: atraumatic, normocephalic, normal inspection Eye exam: Present: normal appearance, PERRL, EOMI Pupils: Present: normal accommodation ENT exam: Present: normal exam, normal oropharynx, mucous membranes moist, TM's normal bilaterally, normal external ear exam Neck exam: Present: normal inspection, full ROM. Absent: lymphadenopathy Respiratory exam: Present: normal lung sounds bilaterally, decreased breath sounds (Mild decreased breath sounds). Absent: respiratory distress, wheezes, rales Cardiovascular Exam: Present: regular rate, normal rhythm, normal heart sounds Extremities exam: Present: normal inspection, full ROM Back exam: Present: normal inspection, full ROM Neurological exam: Present: alert, oriented X3, normal gait Psychiatric exam: Present: normal affect, normal mood Skin exam: Present: warm, dry, intact, normal color Course Vital Signs 10/09/19 10/09/19 10/09/19 21:16 21:57 22:32 Temperature 97.7 F 98.1 F Pulse Rate 77 77 72 Respiratory 19 16 16 Rate Blood Pressure 139/94 144/79 O2 Sat by Pulse 98 100 99 Oximetry Medical Decision Making - Medical Decision Making Patient is a 44-year-old female presenting to the emergency department with a chief complaint of cough and shortness of breath. Nonproductive cough for the last several days with 1 day of shortness of breath. On exam patient is not in any respiratory distress. Lungs clear bilaterally with mild decreased breath sounds. Chest x-ray is unremarkable. Patient is PERC negative. Patient was in the ED about 3 months ago with exact same symptoms. Patient reported that an inhaler and steroids greatly helped her condition. Patient will be discharged with albuterol inhaler and prednisone. Patient given 60 mg of prednisone in the ED. Vitals are stable. Return parameters were discussed with patient is understanding and agreeable. Case discussed with physician. Disposition Clinical Impression: Acute respiratory infection Disposition: HOME SELF-CARE Condition: Stable Instructions (If sedation given, give patient instructions): Allergies (ED) Additional Instructions: Take prescribed medication as directed. Continue taking albuterol his home every 4 hours as needed. Return to emergency department if symptoms worsen. Prescriptions: predniSONE 50 mg PO DAILY #5 tab Albuterol Inhaler (Bulk) [Ventolin Hfa Inhaler (Bulk)] 1 - 2 puff INHALATION RT- Q6H PRN #1 inhaler PRN Reason: Shortness Of Breath Is patient prescribed a controlled substance at d/c from ED?: No Referrals: Jose Francisco Simental MD [Primary Care Provider] - 1-2 days Time of Disposition: 22:28
[2019-10-09 22:33] VITALS: PULSE 72
== END 2019-10-09 22:32 | disposition home or self-care (01) ==
LOC: EC 21:16
DX: J22 Unspecified acute lower respiratory infection (principal); Z88.0 Allergy status to penicillin; Z88.1 Allergy status to other antibiotic agents; Z88.2 Allergy status to sulfonamides; Z86.14 Personal history of Methicillin resistant Staphylococcus aureus infection
CPT/HCPCS: 71045; 99284; J7512

== ENCOUNTER 2020-05-23 18:00 | Emergency (ER) | payer BC ==
[2020-05-23] MEDS ORDERED: ACETAMINOPHEN TAB 500 MG TAB PO STA (18:52)
--- NOTE | 2020-05-23 19:01 | ED ---
General Adult HPI - General Chief complaint: Upper Respiratory Infection Stated complaint: poss bronchitis Time Seen by Provider: 05/23/20 18:34 Source: patient, RN notes reviewed Mode of arrival: ambulatory Limitations: no limitations - History of Present Illness Initial comments: Patient is a pleasant 44 old female presenting to the emergency Department with complaints of cough. Onset of symptoms was couple days ago. Patient is starting to feel some chills just now. No dyspnea. Patient states she does have history of similar symptoms previously associated with bronchitis however concerned she could have oronavirus infection. No leg pain or leg swelling. - Related Data Home Medications Medication Instructions Recorded Confirmed No Known Home Medications 05/23/20 05/23/20 Allergies Allergy/AdvReac Type Severity Reaction Status Date / Time amoxicillin Allergy Rash/Hives Verified 05/23/20 18:53 doxycycline Allergy Rash/Hives Verified 05/23/20 18:53 Penicillins Allergy Rash/Hives Verified 05/23/20 18:53 Sulfa (Sulfonamide Allergy Rash/Hives Verified 05/23/20 18:53 Antibiotics) Review of Systems ROS Statement: Those systems with pertinent positive or pertinent negative responses have been documented in the HPI. ROS Other: All systems not noted in ROS Statement are negative. Constitutional: Reports: chills Eyes: Denies: eye pain ENT: Denies: ear pain Respiratory: Reports: cough. Denies: dyspnea Cardiovascular: Denies: chest pain Endocrine: Reports: fatigue Gastrointestinal: Denies: abdominal pain Genitourinary: Denies: dysuria Musculoskeletal: Denies: back pain Skin: Denies: rash Neurological: Denies: weakness Past Medical History Past Medical History: Skin Disorder, Thyroid Disorder Additional Past Medical History / Comment(s): lipid storage disease, abdominal wound, History of Any Multi-Drug Resistant Organisms: MRSA Date of last positivie culture/infection: 04/20/15 MDRO Source:: Abdomen Past Surgical History: Appendectomy Additional Past Surgical History / Comment(s): biopsy of the left shoulder and right leg by Dr. Sams for diagnosis of lipid storage disease Past Anesthesia/Blood Transfusion Reactions: No Reported Reaction, Motion Sickness Additional Past Anesthesia/Blood Transfusion Reaction / Comment(s): never received either Past Psychological History: No Psychological Hx Reported Smoking Status: Former smoker Past Alcohol Use History: None Reported Past Drug Use History: None Reported - Past Family History Father History Unknown: Yes Additional Family Medical History / Comment(s): pt adopted Mother History Unknown: Yes Additional Family Medical History / Comment(s): pt adopted General Exam Limitations: no limitations General appearance: alert, in no apparent distress Head exam: Present: normocephalic Eye exam: Present: normal appearance Neck exam: Present: normal inspection Respiratory exam: Present: normal lung sounds bilaterally. Absent: respiratory distress, wheezes Cardiovascular Exam: Present: regular rate, normal rhythm GI/Abdominal exam: Present: soft. Absent: tenderness Extremities exam: Present: normal inspection. Absent: pedal edema, calf tenderness Neurological exam: Present: alert Psychiatric exam: Present: normal affect, normal mood Skin exam: Present: normal color Course Vital Signs 05/23/20 18:13 Temperature 97.2 F L Pulse Rate 73 Respiratory 16 Rate Blood Pressure 145/91 O2 Sat by Pulse 98 Oximetry Medical Decision Making - Medical Decision Making patient reevaluated and updated. Patient is made aware of high concern for coronavirus infection and advised to self quarantined until results. - Radiology Data Radiology results: image reviewed (Chest x-ray shows no acute process) Disposition Clinical Impression: Fever, Cough Disposition: HOME SELF-CARE Condition: Stable Instructions (If sedation given, give patient instructions): Upper Respiratory Infection (ED) Additional Instructions: please self quarantine pending coronavirus results. [id number] vitamin C, vitamin D, and zinc as needed. Return for difficulty breathing, uncontrolled fevers, worsening symptoms or other concerns. [id number] Tylenol as needed for fever. Is patient prescribed a controlled substance at d/c from ED?: No Referrals: Jose Francisco Simental MD [Primary Care Provider] - 1-2 days Time of Disposition: 20:03
--- NOTE | 2020-05-23 19:47 | XR ---
EXAMINATION TYPE: XR chest 1V portable DATE OF EXAM: 05/23/2020 COMPARISON: 10/09/2019. HISTORY: Cough. TECHNIQUE: Single frontal view of the chest is obtained. FINDINGS: There is no focal air space opacity, pleural effusion, or pneumothorax seen. The cardiac silhouette size is within normal limits. The osseous structures are intact. IMPRESSION: No acute process.
[2020-05-23 20:41] VITALS: BP 132/84; PULSE 71; RESP 18; TEMP 97.1
== END 2020-05-23 20:39 | disposition home or self-care (01) ==
LOC: EC 18:00
DX: R50.9 Fever, unspecified (principal); R05 Cough; Z88.0 Allergy status to penicillin; Z88.1 Allergy status to other antibiotic agents; Z88.2 Allergy status to sulfonamides; Z86.14 Personal history of Methicillin resistant Staphylococcus aureus infection; Z87.891 Personal history of nicotine dependence; Z20.828 Contact with and (suspected) exposure to other viral communicable diseases
CPT/HCPCS: 71045; 99283; U0003

== ENCOUNTER 2020-10-07 18:36 | Emergency (ER) | payer BC ==
--- NOTE | 2020-10-07 21:02 | XR ---
EXAMINATION TYPE: XR chest 2V DATE OF EXAM: 10/07/2020 COMPARISON: 05/23/2020 HISTORY: Cough TECHNIQUE: 2 views FINDINGS: Heart is normal. Lungs are clear of infiltrate. There is no heart failure. There are no hil ar masses. Bony thorax is intact. IMPRESSION: No active cardiopulmonary disease. Normal heart. No change.
[2020-10-07] MEDS ORDERED: KETOROLAC 15 MG/ML 1 ML VIAL IVP STA (21:16)
[2020-10-07 21:53] LABS: Basophils % (A) 0 %; Eosinophils # (A) 0.1 k/uL (0-0.7); Eosinophils % (A) 2 %; HGB 13.4 gm/dL (11.4-16.0); Lymphocytes # (A) 1.4 k/uL (1.0-4.8); Lymphocytes % (A) 26 %; MCH 29.1 pg (25.0-35.0); MCHC 34.2 g/dL (31.0-37.0); Mean Platelet Volume 7.8; Monocytes # (A) 0.4 k/uL (0-1.0); Monocytes % (A) 7 %; Neutrophils # (A) 3.3 k/uL (1.3-7.7); Neutrophils % (A) 63 %; Platelet Count 204 k/uL (150-450); RBC 4.59 m/uL (3.80-5.40); RDW 12.9 % (11.5-15.5); WBC 5.2 k/uL (3.8-10.6)
[2020-10-07 22:12] LABS: ALT 20 U/L (4-34); AST 28 U/L (14-36); African American GFR (CKD) >90 (>60 ml/min/1.73 sqM); Albumin 4.1 g/dL (3.5-5.0); Alkaline Phosphatase 50 U/L (38-126); Anion Gap 9 mmol/L; Blood Urea Nitrogen 15 mg/dL (7-17); Calcium 9.1 mg/dL (8.4-10.2); Carbon Dioxide 21 mmol/L (22-30); Chloride 107 mmol/L (98-107); Glucose 104 mg/dL (74-99); Non-African American GFR(CKD) >90 (>60 ml/min/1.73 sqM); Sodium 137 mmol/L (137-145); Total Bilirubin 0.5 mg/dL (0.2-1.3); Total Protein 7.7 g/dL (6.3-8.2)
[2020-10-07 23:02] VITALS: BP 132/88; PULSE 73; RESP 18; TEMP 97.1
--- NOTE | 2020-10-07 23:06 | ED ---
Recheck HPI - General Chief Complaint: Recheck/Abnormal Lab/Rx Stated Complaint: Chest pain, headache Time Seen by Provider: 10/07/20 20:13 Source: patient Mode of arrival: ambulatory Limitations: no limitations - History of Present Illness Initial Comments: 45-year-old female presenting for multiple complaints. Patient states that she had a vaccine 4 days ago and since then she has had headache chest discomfort body aches all over. Patient states that she had a fever 2 days ago that went away. Patient states that she does not feel she should've had symptoms this long and presented to the emergency prior for evaluation. She states she has had a cough. Patient denies any persistent fevers diarrhea vomiting shortness of breath, she denies substernal chest pain jaw pain arm pain epigastric pain nausea. Patient states she does not feel like this is cardiac in nature at all. She states it feels like more so that she can expand her lungs. Patient appears well arrival she is in no acute distress - Related Data Home Medications Medication Instructions Recorded Confirmed No Known Home Medications 05/23/20 05/23/20 Allergies Allergy/AdvReac Type Severity Reaction Status Date / Time amoxicillin Allergy Rash/Hives Verified 10/07/20 18:42 doxycycline Allergy Rash/Hives Verified 10/07/20 18:42 Penicillins Allergy Rash/Hives Verified 10/07/20 18:42 Sulfa (Sulfonamide Allergy Rash/Hives Verified 10/07/20 18:42 Antibiotics) Review of Systems ROS Statement: Those systems with pertinent positive or pertinent negative responses have been documented in the HPI. ROS Other: All systems not noted in ROS Statement are negative. Past Medical History Past Medical History: Skin Disorder, Thyroid Disorder Additional Past Medical History / Comment(s): lipid storage disease, abdominal wound, History of Any Multi-Drug Resistant Organisms: MRSA Date of last positivie culture/infection: 04/20/15 MDRO Source:: Abdomen Past Surgical History: Appendectomy Additional Past Surgical History / Comment(s): biopsy of the left shoulder and right leg by Dr. Sams for diagnosis of lipid storage disease Past Anesthesia/Blood Transfusion Reactions: No Reported Reaction, Motion Sickness Additional Past Anesthesia/Blood Transfusion Reaction / Comment(s): never received either Past Psychological History: No Psychological Hx Reported Smoking Status: Former smoker Past Alcohol Use History: None Reported Past Drug Use History: None Reported - Past Family History Father History Unknown: Yes Additional Family Medical History / Comment(s): pt adopted Mother History Unknown: Yes Additional Family Medical History / Comment(s): pt adopted General Exam - General Exam Comments Initial Comments: General: The patient is awake and alert, in no distress, and does not appear acutely ill. Eye: Pupils are equal, round and reactive to light, extra-ocular movements are intact. No nystagmus. There is normal conjunctiva bilaterally. No signs of icterus. Ears, nose, mouth and throat: There are moist mucous membranes and no oral lesions. Neck: The neck is supple, there is no tenderness or JVD. No nuchal rigidity Cardiovascular: There is a regular rate and rhythm. No murmur, rub or gallop is appreciated. Respiratory: Lungs are clear to auscultation, respirations are non-labored, breath sounds are equal. No wheezes, stridor, rales, or rhonchi. Gastrointestinal: \Soft, non-distended, non-tender abdomen without masses or organomegaly noted. There is no rebound or guarding present. Musculoskeletal: Normal ROM, no tenderness. Strength 5/5. Sensation intact. Pulses equal bilaterally 2+. Neurological: A&O x 3. CN II-XII intact, There are no obvious motor or sensory deficits. Coordination appears grossly intact. Speech is normal. Skin: Skin is warm and dry and no rashes or lesions are noted. The lower extremity swelling or calf pain Psychiatric: Cooperative, appropriate mood & affect, normal judgment. Limitations: no limitations Course Vital Signs 10/07/20 10/07/20 18:39 23:00 Temperature 97.6 F 97.1 F L Pulse Rate 83 73 Respiratory 20 18 Rate Blood Pressure 159/80 132/88 O2 Sat by Pulse 99 99 Oximetry Medical Decision Making - Medical Decision Making Very well-appearing 45-year-old female. Patient is concerned that her symptoms after her Covid 19 vaccination were lasting 4 days. Patient that she has pain all over including the chest she did say more so feels like she can't expand when she takes a deep breath. She denies any crushing substernal chest pain jaw pain and arm pain epigastric pain nausea. Patient sates she does not like this is cardiac whatsoever she states she is pain all over her body. Patient's no nuchal rigidity she does have complaints of headaches without focal neurological deficits. His EKG revealed no acute process. Troponin negative, symptoms ongoing for 3 days (much greater than 3 hours). at this time I feel patient symptoms consistent with vaccine side effects and she is to f/u with pcp. discussed case with attending who is agreeable to care plan. Ventricular rate 70 bpm, MI interval 180 ms, QRS duration 32 ms, QT/QTc 390/421. This is normal sinus with no ST elevation or depression appreciated - Lab Data Result diagrams: 10/07/20 21:44 10/07/20 21:44 Lab Results 10/07/20 10/07/20 10/07/20 Range/Units 20:30 21:44 21:44 WBC 5.2 (3.8-10.6) k/uL RBC 4.59 (3.80-5.40) m/uL Hgb 13.4 (11.4-16.0) gm/dL Hct 39.0 (34.0-46.0) % MCV 85.0 (80.0-100.0) fL MCH 29.1 (25.0-35.0) pg MCHC 34.2 (31.0-37.0) g/dL RDW 12.9 (11.5-15.5) % Plt Count 204 (150-450) k/uL MPV 7.8 Neutrophils % 63 % Lymphocytes % 26 % Monocytes % 7 % Eosinophils % 2 % Basophils % 0 % Neutrophils # 3.3 (1.3-7.7) k/uL Lymphocytes # 1.4 (1.0-4.8) k/uL Monocytes # 0.4 (0-1.0) k/uL Eosinophils # 0.1 (0-0.7) k/uL Basophils # 0.0 (0-0.2) k/uL Sodium 137 (137-145) mmol/L Potassium 4.0 (3.5-5.1) mmol/L Chloride 107 (98-107) mmol/L Carbon Dioxide 21 L (22-30) mmol/L Anion Gap 9 mmol/L BUN 15 (7-17) mg/dL Creatinine 0.63 (0.52-1.04) mg/dL Est GFR (CKD-EPI)AfAm >90 (>60 ml/min/1.73 sqM) Est GFR (CKD-EPI)NonAf >90 (>60 ml/min/1.73 sqM) Glucose 104 H (74-99) mg/dL Calcium 9.1 (8.4-10.2) mg/dL Total Bilirubin 0.5 (0.2-1.3) mg/dL AST 28 (14-36) U/L ALT 20 (4-34) U/L Alkaline Phosphatase 50 (38-126) U/L Troponin I (0.000-0.034) ng/mL Total Protein 7.7 (6.3-8.2) g/dL Albumin 4.1 (3.5-5.0) g/dL Coronavirus (PCR) Not Detected (Not Detectd) 10/07/20 Range/Units 21:44 WBC (3.8-10.6) k/uL RBC (3.80-5.40) m/uL Hgb (11.4-16.0) gm/dL Hct (34.0-46.0) % MCV (80.0-100.0) fL MCH (25.0-35.0) pg MCHC (31.0-37.0) g/dL RDW (11.5-15.5) % Plt Count (150-450) k/uL MPV Neutrophils % % Lymphocytes % % Monocytes % % Eosinophils % % Basophils % % Neutrophils # (1.3-7.7) k/uL Lymphocytes # (1.0-4.8) k/uL Monocytes # (0-1.0) k/uL Eosinophils # (0-0.7) k/uL Basophils # (0-0.2) k/uL Sodium (137-145) mmol/L Potassium (3.5-5.1) mmol/L Chloride (98-107) mmol/L Carbon Dioxide (22-30) mmol/L Anion Gap mmol/L BUN (7-17) mg/dL Creatinine (0.52-1.04) mg/dL Est GFR (CKD-EPI)AfAm (>60 ml/min/1.73 sqM) Est GFR (CKD-EPI)NonAf (>60 ml/min/1.73 sqM) Glucose (74-99) mg/dL Calcium (8.4-10.2) mg/dL Total Bilirubin (0.2-1.3) mg/dL AST (14-36) U/L ALT (4-34) U/L Alkaline Phosphatase (38-126) U/L Troponin I <0.012 (0.000-0.034) ng/mL Total Protein (6.3-8.2) g/dL Albumin (3.5-5.0) g/dL Coronavirus (PCR) (Not Detectd) Disposition Clinical Impression: Body aches, Headache, Chest discomfort Disposition: HOME SELF-CARE Condition: Good Instructions (If sedation given, give patient instructions): Chest Pain (ED) Additional Instructions: Please use medication as discussed. Please follow-up with family doctor in the next 2 days. Please return to emergency room if the symptoms increase or worsen or for any other concerns. Is patient prescribed a controlled substance at d/c from ED?: No Referrals: Jose Francisco Simental MD [Primary Care Provider] - 1-2 days Time of Disposition: 23:06
== END 2020-10-07 23:19 | disposition home or self-care (01) ==
LOC: EC 18:36
DX: R07.89 Other chest pain (principal); R51.9 Headache, unspecified; R05 Cough; Z87.891 Personal history of nicotine dependence; Z20.822 Contact with and (suspected) exposure to COVID-19; Z88.0 Allergy status to penicillin
CPT/HCPCS: 36415; 71046; 80053; 84484; 85025; 87635; 93005; 96374; 99285

== ENCOUNTER 2021-04-09 13:51 | Emergency (ER) | payer BC ==
[2021-04-09 16:05] VITALS: BP 136/79; PULSE 92; RESP 18; TEMP 98.3
[2021-04-09 16:31] LABS: Appearance,Urine Clear (Clear); Bilirubin,Urine Negative (Negative); Blood,Urine Negative (Negative); Color,Urine Yellow; Glucose,Urine (UA) Negative (Negative); Ketones,Urine Negative (Negative); Leukocyte Esterase,Urine Negative (Negative); Nitrite,Urine Negative (Negative); Protein,Urine Negative (Negative); Specific Gravity,Urine 1.021 (1.001-1.035); Urobilinogen,Urine <2.0 mg/dL (<2.0)
[2021-04-09 16:36] LABS: Basophils % (A) 1 %; Eosinophils # (A) 0.1 k/uL (0-0.7); Eosinophils % (A) 2 %; HCT 41.8 % (34.0-46.0); HGB 14.3 gm/dL (11.4-16.0); Lymphocytes # (A) 1.1 k/uL (1.0-4.8); Lymphocytes % (A) 25 %; MCH 29.6 pg (25.0-35.0); MCHC 34.2 g/dL (31.0-37.0); MCV 86.4 fL (80.0-100.0); Mean Platelet Volume 8.2; Monocytes # (A) 0.3 k/uL (0-1.0); Monocytes % (A) 7 %; Neutrophils # (A) 2.7 k/uL (1.3-7.7); Neutrophils % (A) 62 %; Platelet Count 196 k/uL (150-450); RBC 4.83 m/uL (3.80-5.40); RDW 13.5 % (11.5-15.5); WBC 4.4 k/uL (3.8-10.6)
[2021-04-09 16:42] LABS: ALT 23 U/L (4-34); AST 29 U/L (14-36); African American GFR (CKD) >90 (>60 ml/min/1.73 sqM); Albumin 4.2 g/dL (3.5-5.0); Alkaline Phosphatase 62 U/L (38-126); Anion Gap 10 mmol/L; Blood Urea Nitrogen 16 mg/dL (7-17); Calcium 9.2 mg/dL (8.4-10.2); Carbon Dioxide 21 mmol/L (22-30); Chloride 105 mmol/L (98-107); Glucose 103 mg/dL (74-99); Non-African American GFR(CKD) >90 (>60 ml/min/1.73 sqM); Potassium 4.1 mmol/L (3.5-5.1); Sodium 136 mmol/L (137-145); Total Bilirubin 0.5 mg/dL (0.2-1.3); Total Protein 8.1 g/dL (6.3-8.2)
--- NOTE | 2021-04-09 18:41 | ED ---
General Adult HPI - General Chief complaint: Urogenital Stated complaint: kidney infection Source: patient Mode of arrival: ambulatory Limitations: no limitations - History of Present Illness Initial comments: 45-year-old female presents to the emergency department with plaintive right- sided flank pain. She states that the pain has been present for the past several days. She has recurrent UTIs and therefore is concerned for pyelonephritis. States that she has had some increased frequency of urination. She did have an old antibiotic at home which she began to take and states that her symptoms improved originally only to return this morning. The right flank is tender to the touch. States that it is worse with positional changes. Denies any numbness, tingling or weakness into her leg. No changes in her bowel habits. No concern for . Denies any abnormal vaginal bleeding or discharge. Denies any nausea or vomiting. No other alleviating, authorization representative modifying factors - Related Data Home Medications Medication Instructions Recorded Confirmed No Known Home Medications 05/23/20 05/23/20 Allergies Allergy/AdvReac Type Severity Reaction Status Date / Time amoxicillin Allergy Rash/Hives Verified 04/09/21 16:05 doxycycline Allergy Rash/Hives Verified 04/09/21 16:05 Penicillins Allergy Rash/Hives Verified 04/09/21 16:05 Sulfa (Sulfonamide Allergy Rash/Hives Verified 04/09/21 16:05 Antibiotics) Review of Systems ROS Statement: Those systems with pertinent positive or pertinent negative responses have been documented in the HPI. ROS Other: All systems not noted in ROS Statement are negative. Past Medical History Past Medical History: Skin Disorder, Thyroid Disorder Additional Past Medical History / Comment(s): lipid storage disease, abdominal wound, History of Any Multi-Drug Resistant Organisms: MRSA Date of last positivie culture/infection: 04/20/15 MDRO Source:: Abdomen Past Surgical History: Appendectomy Additional Past Surgical History / Comment(s): biopsy of the left shoulder and right leg by Dr. Sams for diagnosis of lipid storage disease Past Anesthesia/Blood Transfusion Reactions: No Reported Reaction, Motion Sickness Additional Past Anesthesia/Blood Transfusion Reaction / Comment(s): never received either Past Psychological History: No Psychological Hx Reported Smoking Status: Former smoker Past Alcohol Use History: None Reported Past Drug Use History: None Reported - Past Family History Father History Unknown: Yes Additional Family Medical History / Comment(s): pt adopted Mother History Unknown: Yes Additional Family Medical History / Comment(s): pt adopted General Exam Limitations: no limitations Course Vital Signs 04/09/21 16:03 Temperature 98.3 F Pulse Rate 92 Respiratory 18 Rate Blood Pressure 136/79 O2 Sat by Pulse 98 Oximetry Medical Decision Making - Medical Decision Making Upon arrival patient is placed in room 29. There are history of physical exam is performed. Laboratory studies were obtained and the patient provided a urine sample. Laboratory studies are reviewed and demonstrates no acute findings. Urinalysis is clear. The results are discussed with the patient. Patient is satisfied with the workup that is completed. She'll be discharged home and instructed to place warm compresses to the site. She is to alternate taking Motrin Tylenol for pain. Follow up with her primary care doctor in 2-4 days. Return to emergency room for any worsening symptoms. Patient was discharged home in stable condition - Lab Data Result diagrams: 04/09/21 16:22 04/09/21 16:22 Lab Results 04/09/21 04/09/21 04/09/21 Range/Units 16:22 16:22 16:22 WBC 4.4 (3.8-10.6) k/uL RBC 4.83 (3.80-5.40) m/uL Hgb 14.3 (11.4-16.0) gm/dL Hct 41.8 (34.0-46.0) % MCV 86.4 (80.0-100.0) fL MCH 29.6 (25.0-35.0) pg MCHC 34.2 (31.0-37.0) g/dL RDW 13.5 (11.5-15.5) % Plt Count 196 (150-450) k/uL MPV 8.2 Neutrophils % 62 % Lymphocytes % 25 % Monocytes % 7 % Eosinophils % 2 % Basophils % 1 % Neutrophils # 2.7 (1.3-7.7) k/uL Lymphocytes # 1.1 (1.0-4.8) k/uL Monocytes # 0.3 (0-1.0) k/uL Eosinophils # 0.1 (0-0.7) k/uL Basophils # 0.0 (0-0.2) k/uL Sodium 136 L (137-145) mmol/L Potassium 4.1 (3.5-5.1) mmol/L Chloride 105 (98-107) mmol/L Carbon Dioxide 21 L (22-30) mmol/L Anion Gap 10 mmol/L BUN 16 (7-17) mg/dL Creatinine 0.68 (0.52-1.04) mg/dL Est GFR (CKD-EPI)AfAm >90 (>60 ml/min/1.73 sqM) Est GFR (CKD-EPI)NonAf >90 (>60 ml/min/1.73 sqM) Glucose 103 H (74-99) mg/dL Calcium 9.2 (8.4-10.2) mg/dL Total Bilirubin 0.5 (0.2-1.3) mg/dL AST 29 (14-36) U/L ALT 23 (4-34) U/L Alkaline Phosphatase 62 (38-126) U/L Total Protein 8.1 (6.3-8.2) g/dL Albumin 4.2 (3.5-5.0) g/dL Urine Color Yellow Urine Appearance Clear (Clear) Urine pH 5.0 (5.0-8.0) Ur Specific Saline 1.021 (1.001-1.035) Urine Protein Negative (Negative) Urine Glucose (UA) Negative (Negative) Urine Ketones Negative (Negative) Urine Blood Negative (Negative) Urine Nitrite Negative (Negative) Urine Bilirubin Negative (Negative) Urine Urobilinogen <2.0 (<2.0) mg/dL Ur Leukocyte Esterase Negative (Negative) Disposition Clinical Impression: Right flank pain Disposition: HOME SELF-CARE Condition: Stable Instructions (If sedation given, give patient instructions): Musculoskeletal Pain (ED) Additional Instructions: Please follow-up with the primary care doctor in 2-4 days. Return to the emergency room for any new or worsening symptoms Is patient prescribed a controlled substance at d/c from ED?: No Referrals: Ashlee Elkins DO [Primary Care Provider] - 1-2 days Time of Disposition: 18:41
== END 2021-04-09 19:34 | disposition home or self-care (01) ==
LOC: EC 13:51
DX: R10.9 Unspecified abdominal pain (principal); Z87.891 Personal history of nicotine dependence; Z88.0 Allergy status to penicillin; Z88.2 Allergy status to sulfonamides
CPT/HCPCS: 36415; 80053; 81003; 85025; 99284

== ENCOUNTER 2022-01-13 23:14 | Emergency (ER) | payer BC ==
[2022-01-13] MEDS ORDERED: DIPH,PERTUS(ACELL)TETVAC-LF 0.5 ML VIAL IM ONE (23:18)
[2022-01-13 23:22] VITALS: RESP 17; TEMP 98.2
--- NOTE | 2022-01-13 23:27 | ED ---
General Adult HPI - General Chief complaint: Wound/Laceration Stated complaint: Left Thumb Laceration Time Seen by Provider: 01/13/22 23:15 Source: patient, EMS Mode of arrival: EMS Limitations: no limitations - History of Present Illness Initial comments: Patient presents to the ED by ambulance for evaluation status post sustaining a left thumb laceration. Patient states that she was doing some woodwork when she accidentally injured her left thumb with the chisel she was using, sustaining a laceration. Patient states that she immediately called 911 for ambulance. She denies any other injury or site of pain. Patient denies focal numbness/weakness/neuro deficit, dyspnea, dizziness, nausea or vomiting, or any other symptoms or complaints. Patient states that she is unsure of her last tetanus shot. Patient denies anticoagulant medication use. - Related Data Home Medications Medication Instructions Recorded Confirmed No Known Home Medications 05/23/20 05/23/20 Allergies Allergy/AdvReac Type Severity Reaction Status Date / Time amoxicillin Allergy Rash/Hives Verified 04/09/21 16:05 doxycycline Allergy Rash/Hives Verified 04/09/21 16:05 Penicillins Allergy Rash/Hives Verified 04/09/21 16:05 Sulfa (Sulfonamide Allergy Rash/Hives Verified 04/09/21 16:05 Antibiotics) Review of Systems ROS Statement: Those systems with pertinent positive or pertinent negative responses have been documented in the HPI. ROS Other: All systems not noted in ROS Statement are negative. Past Medical History Past Medical History: Skin Disorder, Thyroid Disorder Additional Past Medical History / Comment(s): lipid storage disease, abdominal wound, History of Any Multi-Drug Resistant Organisms: MRSA Date of last positivie culture/infection: 04/20/15 MDRO Source:: Abdomen Past Surgical History: Appendectomy Additional Past Surgical History / Comment(s): biopsy of the left shoulder and right leg by Dr. Sams for diagnosis of lipid storage disease Past Anesthesia/Blood Transfusion Reactions: No Reported Reaction, Motion Sickness Additional Past Anesthesia/Blood Transfusion Reaction / Comment(s): never received either Past Psychological History: No Psychological Hx Reported Smoking Status: Former smoker Past Alcohol Use History: None Reported Past Drug Use History: None Reported - Past Family History Father History Unknown: Yes Additional Family Medical History / Comment(s): pt adopted Mother History Unknown: Yes Additional Family Medical History / Comment(s): pt adopted General Exam Limitations: no limitations General appearance: alert, in no apparent distress Head exam: Present: atraumatic, normocephalic Eye exam: Present: normal appearance ENT exam: Present: mucous membranes moist Respiratory exam: Present: normal lung sounds bilaterally. Absent: respiratory distress, wheezes, rales, rhonchi, stridor Cardiovascular Exam: Present: regular rate, normal rhythm, normal heart sounds, other (Normal radial pulses bilaterally) Extremities exam: Present: other (A 2 cm, linear, subcutaneous laceration is noted to the patient's left distal thumb anteriorly; patient has full range of motion of her left thumb and has no motor or sensory deficit) Neurological exam: Present: alert, oriented X3. Absent: motor sensory deficit Psychiatric exam: Present: normal affect, normal mood Skin exam: Present: warm, dry, normal color Course Vital Signs 01/13/22 23:17 Temperature 98.2 F Pulse Rate 65 Respiratory 17 Rate Blood Pressure 109/71 O2 Sat by Pulse 99 Oximetry Procedures - Laceration Laceration #1 Consent Obtained: verbal consent Indication: laceration Site: other (Distal left thumb) Size (cm): 2 Description: linear, clean Depth: simple, single layer Pre-repair: irrigated extensively Type of Sutures: other (Exofin skin glue) Patient Tolerated Procedure: well, no complications Medical Decision Making - Medical Decision Making Patient's left hand x-rays are negative. Patient's left thumb laceration was repaired using Exofin skin glue after extensive irrigation and Betadine cleaning. Patient was counseled about lacerations and wound care. Patient was clearly explained return and follow-up instructions. - Radiology Data Left hand x-rays: Negative left hand exam. No fracture. No foreign body seen. Disposition Clinical Impression: Laceration of left thumb Disposition: HOME SELF-CARE Condition: Stable Instructions (If sedation given, give patient instructions): Laceration (ED) Additional Instructions: Return to the ER immediately should you develop new or worsening pain, redness or swelling around your wound, drainage of pus from your wound, a fever, or new or worsening symptoms. Follow up closely with your primary care provider. Is patient prescribed a controlled substance at d/c from ED?: No Referrals: Ashlee Elkins DO [Primary Care Provider] - 1-2 days Time of Disposition: 00:15
--- NOTE | 2022-01-14 00:12 | XR ---
EXAMINATION TYPE: XR hand complete LT DATE OF EXAM: 01/14/2022 COMPARISON: NONE HISTORY: Laceration TECHNIQUE: 3 views FINDINGS: I see no fracture nor dislocation. No evidence of a foreign body. Joint spaces are normal IMPRESSION: Negative left hand exam. No fracture. No foreign body seen.
[2022-01-14 00:21] VITALS: BP 110/69; PULSE 88
== END 2022-01-14 00:23 | disposition home or self-care (01) ==
LOC: EC 23:14
DX: S61.012A Laceration without foreign body of left thumb without damage to nail, initial encounter (principal); Z87.891 Personal history of nicotine dependence; Z88.0 Allergy status to penicillin; Z88.2 Allergy status to sulfonamides; Z88.1 Allergy status to other antibiotic agents; W26.8XXA Contact with other sharp object(s), not elsewhere classified, initial encounter; Y93.89 Activity, other specified
CPT/HCPCS: 12001; 99283

== ENCOUNTER → 2023-03-26 | Outpatient (CLI) | payer BC ==
--- NOTE | 2023-03-27 08:36 | MM ---
Reason for Exam: Screening (asymptomatic). Last mammogram was performed 1 year(s) and 9 month(s) ago. Patient History: Menarche at age 11. Risk Values: Eunice 5 year model risk: 0.7%. NCI Lifetime model risk: 6.6%. Prior Study Comparison: 06/14/2021 Bilateral Screening Mammogram, [facility]. Tissue Density: There are scattered fibroglandular densities. Findings: Analyzed By CAD. There is no suspicious group of microcalcifications or new suspicious mass in either breast. Overall Assessment: Negative, BI-RAD 1 Management: Screening Mammogram of both breasts in 1 year. . Patient should continue monthly self-breast exams. A clinical breast exam by your physician is recommended on an annual basis. This exam should not preclude additional follow-up of suspicious palpable abnormalities. Note on Eunice scores and lifetime risk: 1. A Eunice score greater than 3% is considered moderate risk. If this is the case, consider specialist referral to assess eligibility for a risk reducing agent. 2. If overall lifetime risk for the development of breast cancer is 20% or higher, the patient may qualify for future screening with alternating mammogram and breast MRI. Electronically signed and approved by: Enrico Lindquist M.D. Radiologis
== END | disposition home or self-care (01) ==
LOC: RADMAMWWP 07:09
PROVIDERS: ATTEND Family Medicine
DX: Z12.31 Encounter for screening mammogram for malignant neoplasm of breast (principal)
CPT/HCPCS: 77063; 77067

== ENCOUNTER 2023-08-06 10:05 | Day surgery (SDC) | payer BC ==
[2023-08-04 14:48] VITALS: BMI 39.1
[~2023-08-06 10:05] MED LIST changes: +LIDOCAINE 1% (10MG/ML) FOR IV START INTRADERMA PRN
[2023-08-06 11:27] VITALS: RESP 16; TEMP 99
[2023-08-06] MEDS ORDERED: PROPOFOL 10 MG/ML 20 ML VIAL IV ONE (11:44)
--- NOTE | 2023-08-06 12:03 | P.PCN ---
Date of Procedure: 08/06/23 Procedure(s) Performed: BRIEF HISTORY: Patient is a 47-year-old pleasant female scheduled for an elective colonoscopy as a part of screening for colon cancer. PROCEDURE PERFORMED: Colonoscopy. PREOPERATIVE DIAGNOSIS: Screening for colon cancer. IV sedation per Anesthesia. PROCEDURE: After informed consent was obtained, the patient, was brought into the endoscopy unit. IV sedation was administered by Anesthesia under continuous monitoring. Digital rectal examination was normal. Initially the Olympus CF-160 flexible video colonoscope was then inserted in the rectum, gradually advanced into the sigmoid: Further advancement was not possible because of acute angle duration this area. The scope was removed and a. Colonoscopy was then introduced into the rectum and was gradually advanced into the cecum without any difficulty. Careful examination was performed as the scope was gradually being withdrawn. Ileocecal valve and the appendiceal orifice were visualized and appeared normal. Prep was fair. There was significant amount of sticky still noted in the right colon there was thoroughly irrigated.. Mucosa of the cecum, appeared normal. In the ascending colon there was a 6 cm polyp removed by cold snare polypectomy. Rest of the ascending colon, transverse colon, descending colon, sigmoid colon, and rectum appeared normal. Scattered sigmoid diverticulosis. Retroflexion was performed in the rectum and no lesions were seen. The patient tolerated the procedure well. IMPRESSION: 6 mm ascending colon polyp status post cold snare polypectomy Scattered sigmoid diverticulosis RECOMMENDATIONS: Findings of this examination were discussed with the patient as well as a family. She was advised to follow with the biopsy results. If the biopsy adenoma she can have a repeat colonoscopy in 5 years.
[2023-08-06 12:52] VITALS: BP 123/76; PULSE 74
== END 2023-08-06 13:01 | disposition home or self-care (01) ==
LOC: ORWHC2ENDO 10:05
PROVIDERS: ATTEND Internal Medicine Gastroenterology
DX: Z12.11 Encounter for screening for malignant neoplasm of colon (principal); K57.30 Diverticulosis of large intestine without perforation or abscess without bleeding; K63.5 Polyp of colon; Z88.0 Allergy status to penicillin; Z88.2 Allergy status to sulfonamides; Z88.8 Allergy status to other drugs, medicaments and biological substances
CPT/HCPCS: 81025; 45385; J2704; 88305

== ENCOUNTER 2023-09-19 16:37 | Emergency (ER) | payer BC ==
--- NOTE | 2023-09-19 17:02 | ED ---
Nausea/Vomiting/Diarrhea HPI - General Chief complaint: Nausea/Vomiting/Diarrhea Stated complaint: Diarrhea-sent by Drs Time Seen by Provider: 09/19/23 16:50 Source: patient, RN notes reviewed Mode of arrival: ambulatory Limitations: no limitations - History of Present Illness Initial comments: 48-year-old female presents emergency department chief complaint of diarrhea and diffuse abdominal pain. Patient has been experiencing multiple episodes of abdifatah rrhea since Friday afternoon. She has noted fevers at home where she has taken Tylenol and Motrin. Denies recent travel or consumption of potentially contaminated food. Patient's abdominal surgical history includes appendectomy and intra-abdominal cyst removal. Denies hematochezia, nausea, vomiting, throat, cough. patient was referred by her primary care provider which recommended that she receive a CT scan of her abdomen. - Related Data Home Medications Medication Instructions Recorded Confirmed Carnitine Supplement 1 dose PO DAILY PRN 08/04/23 08/04/23 Previous Rx's Medication Instructions Recorded Cyclobenzaprine [Flexeril] 10 mg PO TID PRN #15 tab 09/08/23 Allergies Allergy/AdvReac Type Severity Reaction Status Date / Time amoxicillin Allergy Rash/Hives Verified 09/19/23 16:50 doxycycline Allergy Rash/Hives Verified 09/19/23 16:50 Penicillins Allergy Rash/Hives Verified 09/19/23 16:50 Sulfa (Sulfonamide Allergy Rash/Hives Verified 09/19/23 16:50 Antibiotics) Review of Systems ROS Statement: Those systems with pertinent positive or pertinent negative responses have been documented in the HPI. ROS Other: All systems not noted in ROS Statement are negative. 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 Sams for diagnosis of lipid storage disease Past Anesthesia/Blood Transfusion Reactions: No Reported Reaction, Motion Sickness Additional Past Anesthesia/Blood Transfusion Reaction / Comment(s): never received either Past Psychological History: No Psychological Hx Reported Smoking Status: Former smoker - Past Family History Father History Unknown: Yes Additional Family Medical History / Comment(s): pt adopted Mother History Unknown: Yes Additional Family Medical History / Comment(s): pt adopted General Exam Limitations: no limitations Course Vital Signs 09/19/23 16:44 Temperature 97.6 F Pulse Rate 114 H Respiratory 20 Rate Blood Pressure 140/93 O2 Sat by Pulse 97 Oximetry Medical Decision Making - Medical Decision Making Was pt. sent in by a medical professional or institution (, PA, PERSONAL LINES INSURANCE ADVISOR, urgent care, hospital, or residential...) When possible be specific @ -Visited with her primary care office this afternoon where they urged her to go to the emergency department to receive a CAT scan of her abdomen Did you speak to anyone other than the patient for history (EMS, parent, family, police, friend...)? What history was obtained from this source @ -No Did you review nursing and triage notes (agree or disagree)? Why? @ -I reviewed and agree with nursing and triage notes Were old charts reviewed (outside hosp., previous admission, EMS record, old EKG, old radiological studies, urgent care reports/EKG's, residential records)? Report findings @ -No old charts were reviewed Differential Diagnosis (chest pain, altered mental status, abdominal pain women, abdominal pain men, vaginal bleeding, weakness, fever, dyspnea, syncope, headache, dizziness, GI bleed, back pain, seizure, CVA, palpatations, mental health, musculoskeletal)? @ -Differential Abdominal Pain Women: Appendicitis, Cholecystitis, diverticulosis, ischemic bowel, pancreatitis, hepatitis, UTI, gastroenteritis, AAA, incarcerated hernia, bowel obstruction, constipation, inflammatory bowel, hepatitis, peptic ulcer disease, splenic infarction, perforated viscus, vulvitis, ovarian torsion, PID, kidney stone, placenta abruption, this is not meant to be an all-inclusive list EKG interpreted by me (3pts min.). @ -None X-rays interpreted by me (1pt min.). @ -None done CT interpreted by me (1pt min.). @ -CT abdomen/pelvis with contrast no evidence of abdominal process, scattered colonic diverticula noted with prominent lymph nodes throughout the mesentery. U/S interpreted by me (1pt. min.). @ -None done What testing was considered but not performed or refused? (CT, X-rays, U/S, labs)? Why? @ -None What meds were considered but not given or refused? Why? @ -None Did you discuss the management of the patient with other professionals (professionals i.e. , PA, PERSONAL LINES INSURANCE ADVISOR, lab, RT, psych nurse, social psychologist, balling machine operator, teacher, chief strategy officer, pillowcase cleaner)? Give summary @ -No Was smoking cessation discussed for >3mins.? @ -No Was critical care preformed (if so, how long)? @ -No Were there social determinants of health that impacted care today? How? (Homelessness, low income, unemployed, alcoholism, drug addiction, transpo rtation, low edu. Level, literacy, decrease access to med. care, shelter, rehab)? @ -No Was there de-escalation of care discussed even if they declined (Discuss DNR or withdrawal of care, Hospice)? DNR status @ -No What co-morbidities impacted this encounter? (DM, HTN, Smoking, COPD, CAD, Cancer, CVA, ARF, Chemo, Hep., AIDS, mental health diagnosis, sleep apnea, morbid obesity)? @ -None Was patient admitted / discharged? Hospital course, mention meds given and route, prescriptions, significant lab abnormalities, going to OR and other pertinent info. @ -48-year-old female presents emergency department the chief complaint of abdominal pain. given liter fluid bolus. CBC no signs of leukocytosis. CT abdomen/pelvis with contrast no evidence of abdominal process, scattered colonic diverticula noted with prominent lymph nodes throughout the mesentery. No evidence for acidosis or alkalosis, since urinalysis reports no acute signs of infection. Reevaluated, patient feels better after dose of Bentyl and IV hydration. Discussed with patient that symptoms are likely secondary to gastr oenteritis. To follow brat diet at home and increase oral hydration Undiagnosed new problem with uncertain prognosis? @ -No Drug Therapy requiring intensive monitoring for toxicity (Heparin, Nitro, Insulin, Cardizem)? @ -No Were any procedures done? @ -No Diagnosis/symptom? @ -gastroenteritis Acute, or Chronic, or Acute on Chronic? @ -acute Uncomplicated (without systemic symptoms) or Complicated (systemic symptoms)? @ Uncomplicated Side effects of treatment? @ -No Exacerbation, Progression, or Severe Exacerbation? @ -No Poses a threat to life or bodily function? How? (Chest pain, USA, DC, pneumonia, PE, COPD, DKA, ARF, appy, cholecystitis, CVA, Diverticulitis, Homicidal, Suicid al, threat to staff... and all critical care pts) @ -No - Lab Data Result diagrams: 09/19/23 17:22 09/19/23 17:22 Lab Results 09/19/23 09/19/23 09/19/23 Range/Units 17:22 17:22 17:22 WBC 3.7 L (3.8-10.6) k/uL RBC 5.37 (3.80-5.40) m/uL Hgb 14.4 (11.4-16.0) gm/dL Hct 44.1 (34.0-46.0) % MCV 82.1 (80.0-100.0) fL MCH 26.9 (25.0-35.0) pg MCHC 32.8 (31.0-37.0) g/dL RDW 13.3 (11.5-15.5) % Plt Count 225 (150-450) k/uL MPV 9.0 Neutrophils % 55 % Lymphocytes % 31 % Monocytes % 9 % Eosinophils % 2 % Basophils % 0 % Neutrophils # 2.0 (1.3-7.7) k/uL Lymphocytes # 1.1 (1.0-4.8) k/uL Monocytes # 0.3 (0-1.0) k/uL Eosinophils # 0.1 (0-0.7) k/uL Basophils # 0.0 (0-0.2) k/uL Sodium 138 (137-145) mmol/L Potassium 4.0 (3.5-5.1) mmol/L Chloride 112 H (98-107) mmol/L Carbon Dioxide 20 L (22-30) mmol/L Anion Gap 6 mmol/L BUN 14 (7-17) mg/dL Creatinine 0.47 L (0.52-1.04) mg/dL Est GFR (CKD-EPI)AfAm >90 (>60 ml/min/1.73 sqM) Est GFR (CKD-EPI)NonAf >90 (>60 ml/min/1.73 sqM) Glucose 100 H (74-99) mg/dL Calcium 9.0 (8.4-10.2) mg/dL Total Bilirubin 0.5 (0.2-1.3) mg/dL AST 49 H (14-36) U/L ALT 43 H (4-34) U/L Alkaline Phosphatase 90 (38-126) U/L Total Protein 7.2 (6.3-8.2) g/dL Albumin 3.7 (3.5-5.0) g/dL Lipase 430 H (23-300) U/L Urine Color Colorless Urine Appearance Clear (Clear) Urine pH 5.0 (5.0-8.0) Ur Specific Waterflow >1.050 H (1.001-1.035) Urine Protein Negative (Negative) Urine Glucose (UA) Negative (Negative) Urine Ketones Negative (Negative) Urine Blood Small H (Negative) Urine Nitrite Negative (Negative) Urine Bilirubin Negative (Negative) Urine Urobilinogen <2.0 (<2.0) mg/dL Ur Leukocyte Esterase Negative (Negative) Urine RBC 1 (0-5) /hpf Urine WBC 1 (0-5) /hpf Ur Squamous Epith Cells <1 (0-4) /hpf Urine Mucus Rare H (None) /hpf Disposition Clinical Impression: Gastroenteritis Narrative: Please return to the Emergency Department if symptoms worsen or any other concerns. When patient follow a 'BRAT' diet next few days and increase fluid intake for rehydration. Disposition: HOME SELF-CARE Condition: Good Is patient prescribed a controlled substance at d/c from ED?: No Referrals: Ashlee Elkins DO [Primary Care Provider] - 1-2 days Time of Disposition: 19:05
[2023-09-19 17:07] VITALS: TEMP 97.6
[2023-09-19] MEDS: DICYCLOMINE 10 MG/ML 2 ML AMP IM STA (17:27)
[2023-09-19] MEDS: SODIUM CHLORIDE 0.9% 1,000 ML IV STA (17:28)
[2023-09-19 17:46] LABS: Basophils % (A) 0 %; Eosinophils # (A) 0.1 k/uL (0-0.7); Eosinophils % (A) 2 %; HCT 44.1 % (34.0-46.0); HGB 14.4 gm/dL (11.4-16.0); Lymphocytes # (A) 1.1 k/uL (1.0-4.8); Lymphocytes % (A) 31 %; MCH 26.9 pg (25.0-35.0); MCHC 32.8 g/dL (31.0-37.0); MCV 82.1 fL (80.0-100.0); Monocytes # (A) 0.3 k/uL (0-1.0); Monocytes % (A) 9 %; Neutrophils % (A) 55 %; Platelet Count 225 k/uL (150-450); RBC 5.37 m/uL (3.80-5.40); RDW 13.3 % (11.5-15.5); WBC 3.7 k/uL (3.8-10.6)
--- NOTE | 2023-09-19 18:00 | CT ---
EXAMINATION TYPE: CT abdomen pelvis w con CT DLP: 1854.2 mGycm, Automated exposure control for dose reduction was used. DATE OF EXAM: 09/19/2023 5:46 PM COMPARISON: 09/05/2022 CLINICAL INDICATION:Female, 48 years old with history of diffuse abdominal pain; generalized abd pain . hx diverticulosis. TECHNIQUE: Axial CT abdomen pelvis w con;Sagittal and coronal reformats were created on a separate w orkstation. Contrast used:100 ml mL of Isovue 370 with IV Contrast, (none if empty) Oral contrast used: without Oral Contrast (none if empty) FINDINGS: LOWER CHEST: Unremarkable ABDOMEN LIVER: Unremarkable GALLBLADDER AND BILE DUCTS: Unremarkable. PANCREAS: Unremarkable. SPLEEN: Unremarkable. ADRENAL GLANDS: Unremarkable. KIDNEYS AND URETERS: No evidence of hydronephrosis or renal calculus. The ureters are unremarkable. PELVIS BLADDER: Unremarkable REPRODUCTIVE: Lobular contour to the uterus. 25 mm left ovarian follicle. ABDOMEN & PELVIS STOMACH AND BOWEL: No evidence of bowel obstruction. Scattered colonic diverticula. PERITONEUM/RETROPERITONEUM: No evidence of pneumoperitoneum or free fluid. VASCULATURE: No evidence of aortic aneurysm. MUSCULOSKELETAL: No acute osseous abnormalities LYMPH NODES: No gross evidence for lymphadenopathy. Similar prominent lymph nodes throughout the mese ntery. SOFT TISSUE/ABDOMINAL WALL: Fat-containing buccal hernia. IMPRESSION: 1. No evidence for acute abdominal process. 2. Scattered colonic diverticula. 3. Similar prominent lymph nodes throughout the mesentery. 4. Fibroid uterus.
[2023-09-19 18:41] LABS: ALT 43 U/L (4-34); AST 49 U/L (14-36); African American GFR (CKD) >90 (>60 ml/min/1.73 sqM); Albumin 3.7 g/dL (3.5-5.0); Alkaline Phosphatase 90 U/L (38-126); Anion Gap 6 mmol/L; Blood Urea Nitrogen 14 mg/dL (7-17); Carbon Dioxide 20 mmol/L (22-30); Chloride 112 mmol/L (98-107); Glucose 100 mg/dL (74-99); Lipase 430 U/L (23-300); Non-African American GFR(CKD) >90 (>60 ml/min/1.73 sqM); Sodium 138 mmol/L (137-145); Total Bilirubin 0.5 mg/dL (0.2-1.3); Total Protein 7.2 g/dL (6.3-8.2)
[2023-09-19 18:43] LABS: Appearance,Urine Clear (Clear); Bilirubin,Urine Negative (Negative); Blood,Urine Small (Negative); Color,Urine Colorless; Glucose,Urine (UA) Negative (Negative); Ketones,Urine Negative (Negative); Leukocyte Esterase,Urine Negative (Negative); Mucus,Urine Rare /hpf; Nitrite,Urine Negative (Negative); Protein,Urine Negative (Negative); RBC,Urine 1 /hpf (0-5); Squamous Epithelial Cell,Urine <1 /hpf (0-4); Urobilinogen,Urine <2.0 mg/dL (<2.0); WBC,Urine 1 /hpf (0-5)
[2023-09-19 18:51] LABS: Specific Gravity,Urine >1.050 (1.001-1.035)
[2023-09-19 19:22] VITALS: BP 122/80; PULSE 96; RESP 18
== END 2023-09-19 19:14 | disposition home or self-care (01) ==
LOC: EC 16:37
DX: K52.9 Noninfective gastroenteritis and colitis, unspecified (principal); K57.30 Diverticulosis of large intestine without perforation or abscess without bleeding; D25.9 Leiomyoma of uterus, unspecified; Z87.891 Personal history of nicotine dependence; Z88.0 Allergy status to penicillin; Z88.2 Allergy status to sulfonamides; Z88.8 Allergy status to other drugs, medicaments and biological substances
CPT/HCPCS: 36415; 80053; 83690; 85025; 81001; 74177; 99284; 96372; 96360; 96361; J0500; Q9967

== ENCOUNTER → 2023-11-25 | Outpatient (CLI) | payer BC ==
[~2023-11-25] MED LIST changes: -LACTATED RINGERS 1,000 ML IV SCH; -LIDOCAINE 1% (10MG/ML) FOR IV START INTRADERMA PRN; +REGADENOSON 0.4 MG/5 ML SYRINGE IV PRN
--- NOTE | 2023-11-25 14:48 | CA ---
Lexiscan Nuclear Stress Test Report Name: Suzanna Byrne Exam Date: 11/25/2023 09:56 Exam Location: [facility] Ht (in): 67 Wt (lb): 244 BSA: 2.20 Ordering Phys: Ottoniel Titus MD Referring Phys: Amanda Kelley [facility] Technologist: Presley Langley Age: 48 Gender: F : 1975 Procedure CPT: Indications: R07.9 CHEST PAIN, UNSPECIFIED ICD-10 Codes: Patient History: CHEST PAIN, DIFFICULTY IN BREATHING Medications: NONE,,, Meds past 24 hrs: Pretest Chest Pain: STRESS TEST Lexiscan Protocol Exercise Duration (min:sec): 02:[address] Depressions (mm): Angina Score: Barroso Score: Resting HR (bpm): 92 Peak HR (bpm): 127 Resting BP (mmHg): 116 / 54 Peak BP (mmHg): 139 / 73 MPHR: 170 Target HR: 145 % MPHR: 75 METS: 1.0 Total Dose: Peak Dose: Atropine: Double Product: 04009 BP Response: Stress Termination: INFUSION COMPLETE Stress Symptoms: NO SYMPTOMS Stress Summary: ECG ANALYSIS Resting ECG: Stress ECG: CONCLUSIONS At baseline EKG showed normal sinus rhythm, normal axis, no significant ST or T wave abnormalities. Patient recieved IV infusion of Lexiscan 0.4mg and at peak infusion EKG showed no significant change from baseline. Conclusions: 1. Normal EKG response to Lexiscan infusion 2. Nuclear imaging to be reported separately. Dr. Gomez Murdock DO (Electronically Signed) Final Date: 25 Nov 2023 14:47
== END | disposition home or self-care (01) ==
LOC: RADNMMAIN 07:56
PROVIDERS: ATTEND Family Medicine
DX: R07.9 Chest pain, unspecified (principal)
CPT/HCPCS: 93017; 78452; A9500; J2785

== ENCOUNTER → 2023-12-24 | Outpatient (CLI) | payer BC ==
[2023-12-24 10:15] LABS: HCT 41.8 % (37.2-46.3); HGB 13.3 g/dL (12.0-15.0); MCH 26.1 pg (27.0-32.0); MCHC 31.8 g/dL (32.0-37.0); MCV 82.1 FL (80.0-97.0); Mean Platelet Volume 10.9 FL (9.5-12.2); NRBC Per 100 WBC 0 X 10*3/uL (0.00-0.01); Platelet Count 188 X 10*3/uL (140-440); RBC 5.09 X 10*6/uL (4.10-5.20); WBC 3.57 X 10*3/uL (4.50-10.00)
[2023-12-24 11:04] LABS: Albumin 3.9 g/dL (3.8-4.9); Blood Urea Nitrogen 19.4 mg/dL (9.0-27.0); Calcium 8.9 mg/dL (8.7-10.3); Carbon Dioxide 18.3 mmol/L (21.6-31.8); Chloride 106 mmol/L (96-109); Chol/HDL Ratio 3.81 Ratio; Glucose 116 mg/dL (70-110); LDL Cholesterol,Calculated 83.5 mg/dL (0.0-131.0); Potassium 4.2 mmol/L (3.5-5.5); Sodium 138 mmol/L (135-145); Total Protein 7.2 g/dL (6.2-8.2); VLDL Calculation 14.56 mg/dL (5.00-40.00)
[2023-12-24 11:05] LABS: ALT 25 U/L (8-44); AST 26 U/L (13-35); Albumin/Globulin Ratio 1.18 Ratio (1.60-3.17); Alkaline Phosphatase 110 U/L (41-126); Globulin 3.3 g/dL (1.6-3.3); Total Bilirubin 0.4 mg/dL (0.3-1.2)
[2023-12-24 14:03] LABS: NT-Pro-B-Type Natriuretic Pept <36 pg/mL (0-125)
== END | disposition home or self-care (01) ==
LOC: LABWHC1 07:31
PROVIDERS: ATTEND Student in an Organized Health Care Education/Training Program
DX: E11.9 Type 2 diabetes mellitus without complications (principal); I25.10 Atherosclerotic heart disease of native coronary artery without angina pectoris; E78.5 Hyperlipidemia, unspecified; I50.9 Heart failure, unspecified
CPT/HCPCS: 36415; 80053; 80061; 83036; 83880; 84443; 85027

== ENCOUNTER 2024-01-30 12:30 | Observation (INO) | payer BC ==
[2024-01-30] MEDS: SODIUM CHLORIDE 0.9% 1,000 ML IV STA (14:16)
[2024-01-30] MEDS: NITROGLYCERIN SL TABS 0.4 MG TAB SUBLINGUAL STA (14:17)
[2024-01-30] MEDS: ASPIRIN 81 MG PO STA (14:17)
[2024-01-30 14:31] LABS: Basophils % (A) 0 %; Eosinophils % (A) 1 %; HCT 43.8 % (34.0-46.0); Lymphocytes # (A) 1.1 k/uL (1.0-4.8); Lymphocytes % (A) 29 %; MCH 26.4 pg (25.0-35.0); MCV 82.3 fL (80.0-100.0); Monocytes # (A) 0.3 k/uL (0-1.0); Monocytes % (A) 7 %; Neutrophils # (A) 2.2 k/uL (1.3-7.7); Neutrophils % (A) 61 %; Platelet Count 225 k/uL (150-450); RBC 5.32 m/uL (3.80-5.40); RDW 13.5 % (11.5-15.5); WBC 3.7 k/uL (3.8-10.6)
[2024-01-30 14:38] LABS: ALT 33 U/L (4-34); AST 34 U/L (14-36); African American GFR (CKD) >90 (>60 ml/min/1.73 sqM); Alkaline Phosphatase 100 U/L (38-126); Anion Gap 9 mmol/L; Blood Urea Nitrogen 17 mg/dL (7-17); Calcium 9.2 mg/dL (8.4-10.2); Carbon Dioxide 22 mmol/L (22-30); Chloride 109 mmol/L (98-107); Glucose 122 mg/dL (74-99); Magnesium 1.9 mg/dL (1.6-2.3); Non-African American GFR(CKD) >90 (>60 ml/min/1.73 sqM); Potassium 4.1 mmol/L (3.5-5.1); Sodium 140 mmol/L (137-145); Total Bilirubin 0.4 mg/dL (0.2-1.3); Total Protein 7.6 g/dL (6.3-8.2)
[2024-01-30 14:44] LABS: INR 1.1 (<1.2); Partial Thromboplastin Time 40.1 sec (22.0-30.0); Prothrombin Time 11.6 sec (10.0-12.5)
[2024-01-30 14:45] LABS: NT-Pro-B-Type Natriuretic Pept 26 pg/mL
--- NOTE | 2024-01-30 15:02 | XR ---
EXAMINATION TYPE: XR chest 2V DATE OF EXAM: 01/30/2024 COMPARISON: 10/07/2020 HISTORY: Chest pain TECHNIQUE: Frontal and lateral views of the chest are obtained. FINDINGS: There is no focal air space opacity. No evidence for pneumothorax. No pleural effusion. The cardiac silhouette size is within normal limits. The osseous structures are grossly intact. IMPRESSION: 1. No acute cardiopulmonary process.
[2024-01-30] MEDS ORDERED: NALOXONE 0.4 MG/ML 1 ML VIAL IV PRN (15:22)
--- NOTE | 2024-01-30 15:24 | ED ---
General Adult HPI - General Chief complaint: Chest Pain Stated complaint: Chest Pain Time Seen by Provider: 01/30/24 13:41 Source: patient, RN notes reviewed, old records reviewed Mode of arrival: wheelchair Limitations: no limitations - History of Present Illness Initial comments: Patient is a 48-year-old female presents emergency department complaining of chest pain. Chest pain is located over the left side of her chest. States it is ongoing over the last week or so. This has happened previously and is outpatient following up with cardiology. 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 States that is improving compared to earlier but is still present. Denies any shortness of breath. Denies any nausea or vomiting. Denies any diaphoresis. Presents for further evaluation at this time. Pain does radiate towards her left shoulder. Past medical history includes thyroid disorder. Severity scale (1-10): 2 - Related Data Home Medications Medication Instructions Recorded Confirmed Carnitine Supplement 1 tbsp PO DAILY 08/04/23 01/30/24 Aspirin EC [Ecotrin Low Dose] 81 mg PO HS 01/30/24 01/30/24 Rosuvastatin Calcium [Crestor] 5 mg PO HS 01/30/24 01/30/24 Allergies Allergy/AdvReac Type Severity Reaction Status Date / Time amoxicillin Allergy Rash/Hives Verified 01/30/24 15:18 doxycycline Allergy Rash/Hives Verified 01/30/24 15:18 Penicillins Allergy Rash/Hives Verified 01/30/24 15:18 Sulfa (Sulfonamide Allergy Rash/Hives Verified 01/30/24 15:18 Antibiotics) Review of Systems ROS Statement: Those systems with pertinent positive or pertinent negative responses have been documented in the HPI. Review of Systems: CONST: Denies fever EYES: Denies blurry vision ENT: Denies nasal congestion C/V: Endorses chest pain RESP: Denies shortness of breath GI: Denies abdominal pain : Denies dysuria SKIN: Denies rash. MSK: Denies joint pain. NEURO: Denies headache ROS Other: All systems not noted in ROS Statement are negative. 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 Sams for diagnosis of lipid storage disease Past Anesthesia/Blood Transfusion Reactions: No Reported Reaction, Motion Sickness Additional Past Anesthesia/Blood Transfusion Reaction / Comment(s): never received either Past Psychological History: No Psychological Hx Reported Smoking Status: Former smoker - Past Family History Father History Unknown: Yes Additional Family Medical History / Comment(s): pt adopted Mother History Unknown: Yes Additional Family Medical History / Comment(s): pt adopted General Exam - General Exam Comments Initial Comments: General: Appears in no acute distress. HEAD: Normal with no signs of head trauma. EYES: PERRLA, EOMI, conjunctiva normal, no discharge. ENT: Hearing grossly intact, normal oropharynx. RESPIRATORY: Clear breath sounds bilaterally. No wheezes, rales, or rhonchi. C/V: Regular rate and rhythm. S1 and S2 auscultated, no edema, peripheral pulses 2+ and intact throughout ABD: Abd is soft, nontender, nondistended EXT: Normal range of motion, no obvious deformity SKIN: No rashes or lesions observed on exposed skin. NEURO: Alert and oriented x 4. Limitations: no limitations Course Vital Signs 01/30/24 01/30/24 01/30/24 12:35 14:19 14:22 Temperature 97.2 F L Pulse Rate 102 H 104 H Respiratory 18 16 16 Rate Blood Pressure 123/87 121/80 Blood Pressure 120/83 [Right Arm] O2 Sat by Pulse 97 96 95 Oximetry 01/30/24 01/30/24 15:50 17:05 Temperature Pulse Rate 84 Respiratory 18 16 Rate Blood Pressure 118/85 Blood Pressure 122/81 [Right Arm] O2 Sat by Pulse 97 97 Oximetry Medical Decision Making - Medical Decision Making Was pt. sent in by a medical professional or institution (, PA, CATEGORY DEVELOPMENT ANALYST, urgent care, hospital, or assisted...) When possible be specific @ -No Did you speak to anyone other than the patient for history (EMS, parent, family, police, friend...)? What history was obtained from this source @ -No Did you review nursing and triage notes (agree or disagree)? Why? @ -I reviewed and agree with nursing and triage notes Were old charts reviewed (outside hosp., previous admission, EMS record, old EKG, old radiological studies, urgent care reports/EKG's, assisted records)? Report findings @ -Compared EKG with EKG from October 2020 with no signs of acute changes. Differential Diagnosis (chest pain, altered mental status, abdominal pain women, abdominal pain men, vaginal bleeding, weakness, fever, dyspnea, syncope, headache, dizziness, GI bleed, back pain, seizure, CVA, palpatations, mental health, musculoskeletal)? @ -Differential Chest Pain: Stable Angina, Unstable Angina, STEMI, NSTEMI Aortic Dissection, Pneumothorax, Musculoskeletal, Esophageal Spasm GERD, Cholecystitis, Pancreatitis, Zoster, this is not meant to be an all-inclusive list. EKG interpreted by me (3pts min.). @ -As above X-rays interpreted by me (1pt min.). @ -Chest x-ray shows no obvious acute cardiopulmonary process per CT interpreted by me (1pt min.). @ -None done U/S interpreted by me (1pt. min.). @ -None done What testing was considered but not performed or refused? (CT, X-rays, U/S, labs)? Why? @ -None What meds were considered but not given or refused? Why? @ -None Did you discuss the management of the patient with other professionals (professionals i.e. , PA, CATEGORY DEVELOPMENT ANALYST, lab, RT, psych nurse, social sciences research scientist, category development analyst, teacher, special skills officer, geriatric case manager)? Give summary @ -Discussed with Dr. Bean, the admitting physician who accepted the admission. Was smoking cessation discussed for >3mins.? @ -No Was critical care preformed (if so, how long)? @ -No Were there social determinants of health that impacted care today? How? (Homelessness, low income, unemployed, alcoholism, drug addiction, transportation, low edu. Level, literacy, decrease access to med. care, [facility], rehab)? @ -No Was there de-escalation of care discussed even if they declined (Discuss DNR or withdrawal of care, Hospice)? DNR status @ -No What co-morbidities impacted this encounter? (DM, HTN, Smoking, COPD, CAD, Cancer, CVA, ARF, Chemo, Hep., AIDS, mental health diagnosis, sleep apnea, morbid obesity)? @ -None Was patient admitted / discharged? Hospital course, mention meds given and route, prescriptions, significant lab abnormalities, going to OR and other pertinent info. @ -Patient presents with recurrent chest pain. Somewhat typical in nature with chest pain rating towards the left shoulder. Patient will be given nitro as well as 324 mg of aspirin. Vital signs within acceptable limits. Patient in agreement this plan. EKG shows no signs of acute ischemia. Chest x-ray unremarkable. Laboratory studies remarkable for undetectable troponin. On reevaluation, patient did receive nitroglycerin which did resolve her pain. She was placed on Nitropaste. Due to her history and story, as well as resolution with nitro I did recommend admission at this time for trending troponin and cardiac observation. She was in agreement this plan. Cardiology consulted. I spoke with the admitting physician, Dr. Bean who accepted the admission. Undiagnosed new problem with uncertain prognosis? @ -No Drug Therapy requiring intensive monitoring for toxicity (Heparin, Nitro, Insulin, Cardizem)? @ -No Were any procedures done? @ -No Diagnosis/symptom? @ -Chest pain Acute, or Chronic, or Acute on Chronic? @ -Acute Uncomplicated (without systemic symptoms) or Complicated (systemic symptoms)? @ -Complicated Side effects of treatment? @ -No Exacerbation, Progression, or Severe Exacerbation? @ -No Poses a threat to life or bodily function? How? (Chest pain, [place], [place], pneumonia, PE, COPD, DKA, ARF, appy, cholecystitis, CVA, Diverticulitis, Homicidal, Suicidal, threat to staff... and all critical care pts) @ -Possibly, yes - Lab Data Result diagrams: 01/30/24 14:19 01/30/24 14:19 Lab Results 01/30/24 01/30/24 01/30/24 Range/Units 14:19 14:19 14:19 WBC 3.7 L (3.8-10.6) k/uL RBC 5.32 (3.80-5.40) m/uL Hgb 14.0 (11.4-16.0) gm/dL Hct 43.8 (34.0-46.0) % MCV 82.3 (80.0-100.0) fL MCH 26.4 (25.0-35.0) pg MCHC 32.0 (31.0-37.0) g/dL RDW 13.5 (11.5-15.5) % Plt Count 225 (150-450) k/uL MPV 8.0 Neutrophils % 61 % Lymphocytes % 29 % Monocytes % 7 % Eosinophils % 1 % Basophils % 0 % Neutrophils # 2.2 (1.3-7.7) k/uL Lymphocytes # 1.1 (1.0-4.8) k/uL Monocytes # 0.3 (0-1.0) k/uL Eosinophils # 0.0 (0-0.7) k/uL Basophils # 0.0 (0-0.2) k/uL PT 11.6 (10.0-12.5) sec INR 1.1 (<1.2) APTT 40.1 H (22.0-30.0) sec D-Dimer 0.54 (<0.60) mg/L FEU Sodium 140 (137-145) mmol/L Potassium 4.1 (3.5-5.1) mmol/L Chloride 109 H (98-107) mmol/L Carbon Dioxide 22 (22-30) mmol/L Anion Gap 9 mmol/L BUN 17 (7-17) mg/dL Creatinine 0.46 L (0.52-1.04) mg/dL Est GFR (CKD-EPI)AfAm >90 (>60 ml/min/1.73 sqM) Est GFR (CKD-EPI)NonAf >90 (>60 ml/min/1.73 sqM) Glucose 122 H (74-99) mg/dL Calcium 9.2 (8.4-10.2) mg/dL Magnesium 1.9 (1.6-2.3) mg/dL Total Bilirubin 0.4 (0.2-1.3) mg/dL AST 34 (14-36) U/L ALT 33 (4-34) U/L Alkaline Phosphatase 100 (38-126) U/L Troponin I (0.000-0.034) ng/mL NT-Pro-B Natriuret Pep 26 pg/mL Total Protein 7.6 (6.3-8.2) g/dL Albumin 4.0 (3.5-5.0) g/dL 01/30/24 Range/Units 14:19 WBC (3.8-10.6) k/uL RBC (3.80-5.40) m/uL Hgb (11.4-16.0) gm/dL Hct (34.0-46.0) % MCV (80.0-100.0) fL MCH (25.0-35.0) pg MCHC (31.0-37.0) g/dL RDW (11.5-15.5) % Plt Count (150-450) k/uL MPV Neutrophils % % Lymphocytes % % Monocytes % % Eosinophils % % Basophils % % Neutrophils # (1.3-7.7) k/uL Lymphocytes # (1.0-4.8) k/uL Monocytes # (0-1.0) k/uL Eosinophils # (0-0.7) k/uL Basophils # (0-0.2) k/uL PT (10.0-12.5) sec INR (<1.2) APTT (22.0-30.0) sec D-Dimer (<0.60) mg/L FEU Sodium (137-145) mmol/L Potassium (3.5-5.1) mmol/L Chloride (98-107) mmol/L Carbon Dioxide (22-30) mmol/L Anion Gap mmol/L BUN (7-17) mg/dL Creatinine (0.52-1.04) mg/dL Est GFR (CKD-EPI)AfAm (>60 ml/min/1.73 sqM) Est GFR (CKD-EPI)NonAf (>60 ml/min/1.73 sqM) Glucose (74-99) mg/dL Calcium (8.4-10.2) mg/dL Magnesium (1.6-2.3) mg/dL Total Bilirubin (0.2-1.3) mg/dL AST (14-36) U/L ALT (4-34) U/L Alkaline Phosphatase (38-126) U/L Troponin I <0.012 (0.000-0.034) ng/mL NT-Pro-B Natriuret Pep pg/mL Total Protein (6.3-8.2) g/dL Albumin (3.5-5.0) g/dL - EKG Data -: EKG Interpreted by Me EKG Comments: 12-lead Electrocardiogram Interpretation Note EKG was reviewed and interpreted by myself. 12-lead ECG performed at 1308 is interpreted by me as revealing normal sinus rhythm at a rate of 98 beats per minute. [place] is normal. [place] interval is 169 ms, QRS duration is 86 ms, QTc is 391 ms.. There were no ST or T wave abnormalities to suggest myocardial ischemia or injury. R wave progression across the precordium was satisfactory. By my interpretation this EKG is non-diagnostic for acute ischemia. Disposition Clinical Impression: Chest pain Disposition: ADMITTED IP TO THIS HOSP Condition: Stable Time of Disposition: 15:15
[2024-01-30] MEDS: NITROGLYCERIN OINT 1 INCH/GM PACKET TOPICAL SCH (16:09)
[2024-01-30] MEDS: HEPARIN SODIUM,PORCINE 5,000 UNIT/ML 1 ML VIAL SQ SCH (16:09)
[2024-01-30] MEDS: SODIUM CHLORIDE 0.9% 1,000 ML IV SCH (16:09)
[2024-01-30] MEDS: ACETAMINOPHEN TAB 325 MG TAB PO PRN (20:21)
[2024-01-30] MEDS: ONDANSETRON 4 MG/2 ML VIAL IVP PRN (20:22)
[2024-01-30] MEDS: ACETAMINOPHEN TAB 325 MG TAB PO STA (20:54)
[2024-01-31 07:31] LABS: Basophils % (A) 0 %; Eosinophils # (A) 0.1 k/uL (0-0.7); Eosinophils % (A) 3 %; HCT 37.8 % (34.0-46.0); HGB 12.3 gm/dL (11.4-16.0); Hypochromasia Slight; Lymphocytes # (A) 1.1 k/uL (1.0-4.8); Lymphocytes % (A) 40 %; MCHC 32.6 g/dL (31.0-37.0); MCV 82.7 fL (80.0-100.0); Mean Platelet Volume 7.7; Monocytes # (A) 0.2 k/uL (0-1.0); Monocytes % (A) 8 %; Neutrophils # (A) 1.3 k/uL (1.3-7.7); Neutrophils % (A) 46 %; Platelet Count 200 k/uL (150-450); RBC 4.57 m/uL (3.80-5.40); RDW 13.6 % (11.5-15.5); WBC 2.8 k/uL (3.8-10.6)
[2024-01-31 07:46] LABS: ALT 28 U/L (4-34); AST 32 U/L (14-36); African American GFR (CKD) >90 (>60 ml/min/1.73 sqM); Albumin 3.2 g/dL (3.5-5.0); Alkaline Phosphatase 89 U/L (38-126); Anion Gap 3 mmol/L; Blood Urea Nitrogen 12 mg/dL (7-17); Calcium 8.9 mg/dL (8.4-10.2); Carbon Dioxide 23 mmol/L (22-30); Chloride 113 mmol/L (98-107); Globulin 3.3 g/dL; Glucose 96 mg/dL (74-99); Non-African American GFR(CKD) >90 (>60 ml/min/1.73 sqM); Sodium 139 mmol/L (137-145); Total Bilirubin 0.6 mg/dL (0.2-1.3); Total Protein 6.5 g/dL (6.3-8.2)
[2024-01-31] MEDS ORDERED: FAMOTIDINE 20 MG/2 ML VIAL ONE (08:12)
[2024-01-31] MEDS: FAMOTIDINE 20 MG/2 ML VIAL IV SCH (08:12)
[2024-01-31] MEDS ORDERED: [UNRECOGNIZED DRUG - OTHER] PO SCH (09:00)
--- NOTE | 2024-01-31 12:00 | P.HPIM ---
History of Present Illness This is a pleasant 48 years old female with past medical history of multiple medical problems as below. Presents because of chest pain which was on and off since last November. In the middle of the chest nonradiating about 6/10 in severity on presentation Improved with nitro down to 1/10 currently however nitro was discontinued becaus e of the headache and the vomiting No obvious other precipitating or relieving factors other than nitro above She denies change in urine or bowel habits. No weakness numbness headache or dizziness currently She denies smoking alcohol or illicit drugs Vitals look stable WBC 3.7, rest of CBC, BMP, liver enzymes were unremarkable. INR is 1.1. Troponin x 3 are negative, proBNP 26 EKG showing sinus rhythm at [address]-T changes Chest x-ray is negative for acute process Negative D-dimer 0.54 Review of Systems Review of systems CONSTITUTIONAL: No fever, no malaise, no fatigue. HEENT: No recent visual problems or hearing problems. Denied any sore throat. CARDIOVASCULAR: No orthopnea, PND, no palpitations, no syncope. PULMONARY: No shortness of breath, no cough, no hemoptysis. GASTROINTESTINAL: No diarrhea, no nausea, no vomiting, no abdominal pain. Normoactive bowel sounds. NEUROLOGICAL: No headaches, no weakness, no numbness. HEMATOLOGICAL: Denies any bleeding or petechiae. GENITOURINARY: Denies any burning micturition, frequency, or urgency. MUSCULOSKELETAL/RHEUMATOLOGICAL: Denies any joint pain, swelling, or any muscle pain. ENDOCRINE: Denies any polyuria or polydipsia. 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 Sams for diagnosis of lipid storage disease Past Anesthesia/Blood Transfusion Reactions: No Reported Reaction, Motion Sickness Additional Past Anesthesia/Blood Transfusion Reaction / Comment(s): never received either Past Psychological History: No Psychological Hx Reported Smoking Status: Former smoker - Past Family History Father History Unknown: Yes Additional Family Medical History / Comment(s): pt adopted Mother History Unknown: Yes Additional Family Medical History / Comment(s): pt adopted Medications and Allergies Home Medications Medication Instructions Recorded Confirmed Type Carnitine Supplement 1 tbsp PO DAILY 08/04/23 01/30/24 History Aspirin EC [Ecotrin Low Dose] 81 mg PO HS 01/30/24 01/30/24 History Rosuvastatin Calcium [Crestor] 5 mg PO HS 01/30/24 01/30/24 History Allergies Allergy/AdvReac Type Severity Reaction Status Date / Time amoxicillin Allergy Rash/Hives Verified 01/30/24 15:18 doxycycline Allergy Rash/Hives Verified 01/30/24 15:18 Penicillins Allergy Rash/Hives Verified 01/30/24 15:18 Sulfa (Sulfonamide Allergy Rash/Hives Verified 01/30/24 15:18 Antibiotics) Physical Exam Vitals: Vital Signs Temp Pulse Pulse Pulse Resp BP BP 01/31/24 07:00 97.8 F 75 16 111/76 01/31/24 01:18 97.6 F 75 18 103/64 01/30/24 20:00 97.6 F 96 18 121/74 01/30/24 17:27 97.5 F L 102 H 18 129/80 01/30/24 17:05 16 122/81 01/30/24 15:50 84 18 118/85 01/30/24 14:22 16 120/83 01/30/24 14:19 104 H 16 121/80 01/30/24 12:35 97.2 F L 102 H 18 123/87 Pulse Ox 01/31/24 07:00 98 01/31/24 01:18 96 01/30/24 20:00 97 01/30/24 17:27 96 01/30/24 17:05 97 01/30/24 15:50 97 01/30/24 14:22 95 01/30/24 14:19 96 01/30/24 12:35 97 Intake and Output 01/30/24 01/31/24 01/31/24 22:59 06:59 14:59 Intake Total 118 Balance 118 Intake: Oral 118 Other: Voiding Method Toilet # Voids 1 2 Weight 108.862 kg GENERAL: The patient is alert and oriented x3, not in any acute distress. Well developed, well nourished. HEENT: Pupils are round and equally reacting to light. EOMI. No scleral icterus. No conjunctival pallor. Normocephalic, atraumatic. No pharyngeal erythema. No thyromegaly. CARDIOVASCULAR: S1 and S2 present. No murmurs, rubs, or gallops. PULMONARY: Chest is clear to auscultation, no wheezing , no crackles. ABDOMEN: Soft, nontender, nondistended, normoactive bowel sounds. No palpable organomegaly. MUSCULOSKELETAL: No joint swelling or deformity. EXTREMITIES: No cyanosis, clubbing, or pedal edema. NEUROLOGICAL: Gross neurological examination did not reveal any focal deficits. SKIN: No rashes. no petechiae. Results CBC & Chem 7: 01/31/24 07:15 01/31/24 07:15 Labs: Abnormal Lab Results - Last 24 Hours (Table) 01/30/24 01/30/24 01/30/24 Range/Units 14:19 14:19 14:19 WBC 3.7 L (3.8-10.6) k/uL APTT 40.1 H (22.0-30.0) sec Chloride 109 H (98-107) mmol/L Creatinine 0.46 L (0.52-1.04) mg/dL Glucose 122 H (74-99) mg/dL Albumin (3.5-5.0) g/dL 01/31/24 01/31/24 Range/Units 07:15 07:15 WBC 2.8 L (3.8-10.6) k/uL APTT (22.0-30.0) sec Chloride 113 H (98-107) mmol/L Creatinine 0.44 L (0.52-1.04) mg/dL Glucose (74-99) mg/dL Albumin 3.2 L (3.5-5.0) g/dL Thrombosis Risk Factor Assmnt - Choose All That Apply Any of the Below Risk Factors Present?: Yes Each Factor Represents 1 point: Age 41-60 years, Obesity (BMI >25) Other Risk Factors: No Other congenital or acquired thrombophilia - If yes, enter type in comment: No Thrombosis Risk Factor Assessment Total Risk Factor Score: 2 Thrombosis Risk Factor Assessment Level: Low Risk Assessment and Plan Assessment: Chest pain, rule out cardiac causes with Negative D-dimer 0.54 Obesity with BMI of 37 Hypothyroidism Arielle's disease, 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 Continue same treatment. Continue with symptomatic treatment. Resume home medication. Monitor labs and vitals. DVT and GI prophylaxis. Further recommendations as per clinical course of the patient DVT prophylaxis: Subcutaneous heparin GI Prophylaxis: Pepcid PT/OT: Pending Prognosis is guarded
--- NOTE | 2024-01-31 13:06 | P.CRDCN ---
History of Present Illness Consult date: 01/31/24 History of present illness: The patient is a pleasant 48-year-old female patient with a past medical history significant for dyslipidemia and overweight and history of "muscular disease" the patient is adopted and the family history is unknown. The patient sees and follows with Dr. Gutierrez in our office on a regular basis. She presented to the hospital complaining of chest discomfort. She was at work yesterday when she started experiencing discomfort in the middle of the chest as a dull kind of feeling with no radiation to the arms or neck or shoulders or back and no associated symptoms of shortness of breath or sweating or dizziness or lightheadedness or any feeling of heart racing or fluttering or presyncope or syncope. She underwent further evaluation including an EKG showed sinus mechanism with no significant ST or T wave abnormalities and troponin came in to be unremarkable. Currently she is chest pain-free but she is slightly tachycardic. D-dimer unremarkable. The patient was seen recently by Dr. Gutierrez where she was seen for follow-up after recent myocardial perfusion imaging stress test came in to be abnormal showing lateral ischemia and she is scheduled to undergo gated cardiac CTA scheduled by the end of the month. She would like a definitive diagnosis and would like to be done while she is here and with that being said we will proceed with a heart catheterization on Friday with Dr. Gutierrez. 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 Sams for diagnosis of lipid storage disease Past Anesthesia/Blood Transfusion Reactions: No Reported Reaction, Motion Sickness Additional Past Anesthesia/Blood Transfusion Reaction / Comment(s): never received either Past Psychological History: No Psychological Hx Reported Smoking Status: Former smoker - Past Family History Father History Unknown: Yes Additional Family Medical History / Comment(s): pt adopted Mother History Unknown: Yes Additional Family Medical History / Comment(s): pt adopted Medications and Allergies Home Medications Medication Instructions Recorded Confirmed Type Carnitine Supplement 1 tbsp PO DAILY 08/04/23 01/30/24 History Aspirin EC [Ecotrin Low Dose] 81 mg PO HS 01/30/24 01/30/24 History Rosuvastatin Calcium [Crestor] 5 mg PO HS 01/30/24 01/30/24 History Allergies Allergy/AdvReac Type Severity Reaction Status Date / Time amoxicillin Allergy Rash/Hives Verified 01/30/24 15:18 doxycycline Allergy Rash/Hives Verified 01/30/24 15:18 Penicillins Allergy Rash/Hives Verified 01/30/24 15:18 Sulfa (Sulfonamide Allergy Rash/Hives Verified 01/30/24 15:18 Antibiotics) Physical Exam Vitals: Vital Signs Temp Pulse Pulse Pulse Resp BP BP 01/31/24 07:00 97.8 F 75 16 111/76 01/31/24 01:18 97.6 F 75 18 103/64 01/30/24 20:00 97.6 F 96 18 121/74 01/30/24 17:27 97.5 F L 102 H 18 129/80 01/30/24 17:05 16 122/81 01/30/24 15:50 84 18 118/85 01/30/24 14:22 16 120/83 01/30/24 14:19 104 H 16 121/80 Pulse Ox 01/31/24 07:00 98 01/31/24 01:18 96 01/30/24 20:00 97 01/30/24 17:27 96 01/30/24 17:05 97 01/30/24 15:50 97 01/30/24 14:22 95 01/30/24 14:19 96 Intake and Output 01/30/24 01/31/24 01/31/24 22:59 06:59 14:59 Intake Total 118 Balance 118 Intake: Oral 118 Other: Voiding Method Toilet # Voids 1 2 Weight 108.862 kg Results 01/31/24 07:15 01/31/24 07:15 Cardiac Enzymes 01/30/24 01/30/24 01/30/24 Range/Units 14:19 14:19 17:11 AST 34 (14-36) U/L Troponin I <0.012 <0.012 (0.000-0.034) ng/mL 01/30/24 01/31/24 Range/Units 19:56 07:15 AST 32 (14-36) U/L Troponin I <0.012 (0.000-0.034) ng/mL Coagulation 01/30/24 Range/Units 14:19 PT 11.6 (10.0-12.5) sec APTT 40.1 H (22.0-30.0) sec CBC 01/30/24 01/31/24 Range/Units 14:19 07:15 WBC 3.7 L 2.8 L (3.8-10.6) k/uL RBC 5.32 4.57 (3.80-5.40) m/uL Hgb 14.0 12.3 (11.4-16.0) gm/dL Hct 43.8 37.8 (34.0-46.0) % Plt Count 225 200 (150-450) k/uL Comprehensive Metabolic Panel 01/30/24 01/31/24 Range/Units 14:19 07:15 Sodium 140 139 (137-145) mmol/L Potassium 4.1 4.0 (3.5-5.1) mmol/L Chloride 109 H 113 H (98-107) mmol/L Carbon Dioxide 22 23 (22-30) mmol/L BUN 17 12 (7-17) mg/dL Creatinine 0.46 L 0.44 L (0.52-1.04) mg/dL Glucose 122 H 96 (74-99) mg/dL Calcium 9.2 8.9 (8.4-10.2) mg/dL AST 34 32 (14-36) U/L ALT 33 28 (4-34) U/L Alkaline Phosphatase 100 89 (38-126) U/L Total Protein 7.6 6.5 (6.3-8.2) g/dL Albumin 4.0 3.2 L (3.5-5.0) g/dL Current Medications Generic Name Dose Route Start Last Admin Trade Name Freq PRN Reason Stop Dose Admin Acetaminophen 650 mg 01/30/24 15:22 01/30/24 20:21 Acetaminophen Tab 325 Mg Tab PO 650 mg Q6HR PRN Administration Mild Pain or Fever > 100.5 Aspirin 81 mg 01/31/24 21:00 Aspirin 81 Mg PO HS [place] Atorvastatin Calcium 10 mg 01/31/24 21:00 Atorvastatin 10 Mg Tab PO HS [place] Famotidine 20 mg 01/31/24 09:00 01/31/24 08:12 Famotidine 20 Mg/2 Ml Vial IV 20 mg Q12HR [place] Administration Heparin Sodium (Porcine) 5,000 unit 01/30/24 16:00 01/31/24 08:12 Heparin Sodium,Porcine 5,000 Unit/Ml 1 Ml Vial SQ 5,000 unit Q8HR [place] Administration Sodium Chloride 1,000 mls @ 75 mls/hr 01/30/24 15:30 01/31/24 05:45 Saline 0.9% IV Not Given .[id number] [facility] Naloxone HCl 0.2 mg 01/30/24 15:22 Naloxone 0.4 Mg/Ml 1 Ml Vial IV Q2M PRN Opioid Reversal Nitroglycerin 0.5 inch 01/30/24 15:15 01/31/24 08:04 Nitroglycerin Oint 1 Inch/Gm Packet TOPICAL Not Given Q8HR [facility] Ondansetron HCl 4 mg 01/30/24 15:22 01/30/24 20:22 Ondansetron 4 Mg/2 Ml Vial IVP 4 mg Q8HR PRN Administration Nausea And Vomiting Intake and Output 01/30/24 01/31/24 01/31/24 22:59 06:59 14:59 Intake Total 118 Balance 118 Intake: Oral 118 Other: Voiding Method Toilet # Voids 1 2 Weight 108.862 kg 01/31/24 07:15 01/31/24 07:15
[2024-01-31] MEDS: ATORVASTATIN 10 MG TAB PO SCH (20:17)
[2024-01-31] MEDS: METOPROLOL TARTRATE 12.5 MG TAB PO SCH (20:17)
[2024-01-31] MEDS: ASPIRIN 81 MG PO SCH (20:17)
--- NOTE | 2024-02-01 12:36 | P.PN ---
Subjective Progress Note Date: 02/01/24 The patient is a pleasant 48-year-old female patient with a past medical history significant for dyslipidemia and overweight and history of "muscular disease" the patient is adopted and the family history is unknown. The patient sees and follows with Dr. Gutierrez in our office on a regular basis. She presented to the hospital complaining of chest discomfort. She was at work yesterday when she started experiencing discomfort in the middle of the chest as a dull kind of feeling with no radiation to the arms or neck or shoulders or back and no associated symptoms of shortness of breath or sweating or dizziness or lightheadedness or any feeling of heart racing or fluttering or presyncope or syncope. She underwent further evaluation including an EKG showed sinus mechanism with no significant ST or T wave abnormalities and troponin came in to be unremarkable. Currently she is chest pain-free but she is slightly tachycardic. D-dimer unremarkable. The patient was seen recently by Dr. Gutierrez where she was seen for follow-up after recent myocardial perfusion imaging stress test came in to be abnormal showing lateral ischemia and she is scheduled to undergo gated cardiac CTA scheduled by the end of the month. She would like a definitive diagnosis and would like to be done while she is here and with that being said we will proceed with a heart catheterization on Friday with Dr. Gutierrez. Examination is remarkable for regular rhythm with a systolic murmur at the right upper sternal border with clear breathing sounds bilaterally and no edema was noted By 2023 The patient was seen and evaluated this morning. She is asymptomatic and hemodynamically stable. She did have an episode of chest discomfort yesterday was very minor and of brief duration. The plan is to pursue with a heart cath eterization. The examination is remarkable for stable vital signs with regular rate and rhythm and clear breathing sounds bilaterally Assessment Chest discomfort which has resolved Dyslipidemia Overweight Plan Acute coronary event was ruled out Pulmonary embolism was ruled out Proceed with a heart catheterization Follow-up with the patient Objective - Vital Signs Vital signs: Vital Signs Temp 97.7 F 02/01/24 07:00 Pulse 79 02/01/24 09:19 Resp 17 02/01/24 07:00 BP 122/80 02/01/24 07:00 Pulse Ox 96 02/01/24 07:00 FiO2 Intake & Output 01/31/24 02/01/24 02/01/24 18:59 06:59 18:59 Intake Total 118 1080 354 Balance 118 9996 354 Intake: Oral 118 1080 354 Other: Voiding Method Toilet Toilet Toilet # Voids 3 3 # Bowel Movements 1 - Labs CBC & Chem 7: 01/31/24 07:15 01/31/24 07:15
[2024-02-01 12:58] LABS: Chol/HDL Ratio 4.61 Ratio; LDL Cholesterol,Calculated 92.7 mg/dL (0.0-131.0)
[2024-02-02] MEDS ORDERED: HEPARIN SODIUM,PORCINE 10,000 UNIT in SODIUM CHLORIDE 0.9% 1,000 ML IRRIGATION PRN (07:00)
[2024-02-02] MEDS ORDERED: ALPRAZolam 0.5 MG TAB PO PRN (07:36)
[2024-02-02] MEDS ORDERED: ALPRAZolam 0.25 MG TAB PO PRN (07:36)
[2024-02-02] MEDS ORDERED: NITROGLYCERIN SL TABS 0.4 MG TAB SUBLINGUAL PRN (07:36)
[2024-02-02] MEDS: ASPIRIN 325 MG TAB PO STA (08:08)
[2024-02-02] MEDS: ATORVASTATIN 80 MG TAB PO STA (08:08)
[2024-02-02] MEDS: SODIUM CHLORIDE 0.9% 1,000 ML in EMPTY BAG 1 BAG IV SCH (08:12)
[2024-02-02 08:25] LABS: Glucose,Whole Blood 116 mg/dL (70-110)
--- NOTE | 2024-02-02 08:36 | P.PN ---
Subjective This is a pleasant 48 years old female with past medical history of multiple medical problems as below. Presents because of chest pain which was on and off since last November. In the middle of the chest nonradiating about 6/10 in severity on presentation Improved with nitro down to 1/10 currently however nitro was discontinued because of the headache and the vomiting No obvious other precipitating or relieving factors other than nitro above She denies change in urine or bowel habits. No weakness numbness headache or dizziness currently She denies smoking alcohol or illicit drugs Vitals look stable WBC 3.7, rest of CBC, BMP, liver enzymes were unremarkable. INR is 1.1. Troponin x 3 are negative, proBNP 26 EKG showing sinus rhythm at [address]-T changes Chest x-ray is negative for acute process Negative D-dimer 0.54 02/02/2024 Patient with minimal chest pain Going for cardiac cath tomorrow Patient currently with bedrest sitting up with no distress Hemodynamically stable Objective - Vital Signs Vital signs: Vital Signs Temp 97.9 F 02/01/24 15:00 Pulse 79 02/01/24 15:00 Resp 16 02/01/24 15:00 BP 112/75 02/01/24 15:00 Pulse Ox 96 02/01/24 15:00 FiO2 Intake & Output 01/31/24 02/01/24 02/01/24 18:59 06:59 18:59 Intake Total 118 1080 472 Balance 118 1080 472 Intake: Oral 118 1080 472 Other: Voiding Method Toilet Toilet Toilet # Voids 3 3 # Bowel Movements 1 - Exam GENERAL: The patient is alert and oriented x3, not in any acute distress. Well developed, well nourished. Obese HEENT: Pupils are round and equally reacting to light. EOMI. No scleral icterus. No conjunctival pallor. Normocephalic, atraumatic. No pharyngeal erythema. No thyromegaly. CARDIOVASCULAR: S1 and S2 present. No murmurs, rubs, or gallops. PULMONARY: Chest is clear to auscultation, no wheezing , no crackles. ABDOMEN: Soft, nontender, nondistended, normoactive bowel sounds. No palpable organomegaly. MUSCULOSKELETAL: No joint swelling or deformity. EXTREMITIES: No cyanosis, clubbing, or pedal edema. NEUROLOGICAL: Gross neurological examination did not reveal any focal deficits. SKIN: No rashes. no petechiae. 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 Continue same treatment. Continue with symptomatic treatment. Resume home medication. Monitor labs and vitals. DVT and GI prophylaxis. Further recommendations as per clinical course of the patient DVT prophylaxis: Subcutaneous heparin GI Prophylaxis: Pepcid PT/OT: Pending Prognosis is guarded
[2024-02-02] MEDS ORDERED: VERAPAMIL 2.5 MG/ML 2 ML AMP ONE ×2 (10:26→11:02)
[2024-02-02] MEDS ORDERED: LIDOCAINE 1% INJ 10MG/ML (20 ML MDV) ONE (10:26)
[2024-02-02] MEDS ORDERED: fentaNYL (PF) 50 MCG/ML 2 ML AMP ONE (10:28)
[2024-02-02] MEDS: fentaNYL (PF) 50 MCG/ML 2 ML AMP IVP ONE (10:34)
[2024-02-02] MEDS: MIDAZOLAM 2 MG/2 ML VIAL IVP ONE (10:34)
--- NOTE | 2024-02-02 10:34 | P.DS ---
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 Presents because of chest pain which was on and off since last November. In the middle of the chest nonradiating about 6/10 in severity on presentation Improved with nitro down to 1/10 currently however nitro was discontinued because of the headache and the vomiting No obvious other precipitating or relieving factors other than nitro above She denies change in urine or bowel habits. No weakness numbness headache or dizziness currently She denies smoking alcohol or illicit drugs Vitals look stable WBC 3.7, rest of CBC, BMP, liver enzymes were unremarkable. INR is 1.1. Troponin x 3 are negative, proBNP 26 EKG showing sinus rhythm at [address]-T changes Chest x-ray is negative for acute process Negative D-dimer 0.54 02/02/2024 Patient with minimal chest pain Going for cardiac cath tomorrow Patient currently with bedrest sitting up with no distress Hemodynamically stable Significant clinical improvement. Chest pain/discomfort has resolved. Denies chest pain, palpitations or shortness of breath. Denies lightheadedness, dizziness or focal deficits. Patient will be discharged home today in a stable condition with guarded prognosis pending cardiac catheterization results, final DC recommendations and clearance per cardiology. The impression and plan of care has been dictated as directed. : I performed a history and examination of this patient, discussed the same with the dictator. I agree with the dictator's note ,documented as a scribe. Any additional findings or plans will be noted. Patient Condition at Discharge: Stable Plan - Discharge Summary Discharge Rx Participant: No New Discharge Prescriptions: Continue Carnitine Supplement 1 tbsp PO DAILY Rosuvastatin Calcium [Crestor] 5 mg PO HS Aspirin EC [Ecotrin Low Dose] 81 mg PO HS Discharge Medication List Carnitine Supplement 1 tbsp PO DAILY 08/04/23 [History] Aspirin EC [Ecotrin Low Dose] 81 mg PO HS 01/30/24 [History] Rosuvastatin Calcium [Crestor] 5 mg PO HS 01/30/24 [History] Follow up Appointment(s)/Referral(s): Du Gutierrez MD [Medical Doctor] - 1 Week Ottoniel Titus MD [Primary Care Provider] - 3 Days
[2024-02-02] MEDS ORDERED: HEPARIN SODIUM 1,000 UN/ML (10ML VL) ONE (10:38)
[2024-02-02] MEDS: LIDOCAINE 1% INJ 10MG/ML (20 ML MDV) SQ ONE (10:40)
[2024-02-02] MEDS: VERAPAMIL SYRINGE (5 MG/10 ML) INTRAARTER ONE ×2 (10:45→11:03)
[2024-02-02] MEDS: HEPARIN SODIUM 1,000 UN/ML (10ML VL) IVP ONE (10:52)
[2024-02-02] MEDS: SODIUM CHLORIDE 0.9% 1,000 ML IV ONE (11:08)
[2024-02-02] MEDS: HEPARIN SOD,PORK IN 0.45% NACL 25,000 UNIT in 0.45% NACL 1 250ML.BAG IV ONE (11:09)
[2024-02-02] MEDS: IOPAMIDOL-370 100ML BTL INJ ONE (11:11)
[2024-02-02] MEDS ORDERED: RX INFO: IV CONTRAST WAS GIVEN 1 EACH MISC MISCELLANE PRN (11:14)
[2024-02-02] MEDS: HEPARIN SODIUM,PORCINE (1 ML) 2,500 UNIT in SODIUM CHLORIDE 0.9% 250 ML IRRIGATION PRN (11:17)
[2024-02-02] MEDS: SODIUM CHLORIDE 0.9% 1,000 ML IV SCH (11:27)
--- NOTE | 2024-02-02 11:38 | P.CARDCATH ---
Date of Procedure: 02/02/24 Description of Procedure: DIAGNOSTIC CORONARY ANGIOGRAPHY and LEFT HEART CATH REPORT PROCEDURES PERFORMED: Left heart catheterization Selective coronary angiography Moderate conscious sedation 30 mins [Ultrasound assisted] Right radial access INDICATION: [Unstable angina] CONSENT: I have explained the procedural steps of above-mentioned procedures in layman's terms to the patient. I discussed the risks (including but not limited to stroke, emergent vascular or cardiac surgery or ), benefits and alternative therapies for the above-mentioned procedure. I discussed the risks of sedation/analgesia and blood product administration (if indicated). The patient has indicated understanding and acceptance of these risks. Conscious Sedation: Patient's ECG, heart rate, blood pressure, pulse oximetry were monitored throughout the duration of procedure under my direct supervision. [2] mg Versed and [50] mcg Fentanyl were used for induction of moderate conscious sedation. Total duration of moderate concious sedation 30 minutes. PROCEDURE: After explaining the risks, benefits and alternatives of the above mentioned procedures in detail to the patient, informed consent was obtained. Patient was taken to the catheterization lab, prepped and draped in usual sterile fashion using universal precuations. Ultrasound was used to identify the radial artery. 1% lidocaine was infiltrated over the right radial artery. A 6-Frisian sheath was placed and secured in the right radial artery using modified Seldinger technique. The sheath was flushed and 5 mg verapamil was administered intra-arterially. J tipped wire was advanced under fluoroscopic guidance. Once the wire tip reached aortic root [6000] units of IV heparin was given. Over the wire JR5 diagnostic catheter was advanced. The wire in place the catheter was manipulated to cross the aortic valve and entered into LV under fluoroscopy guidance. The wire was removed and the catheter was flushed. LV pressures were obtained and pullback was performed under fluoroscopy. Catheter was manipulated to selectively engage the right coronary ostium. Right coronary angiography was performed in different angiographic projections. The JR5 diagnostic catheter was exchanged for a JL 3.5 diagnostic catheter over the J-wire. The wire was removed, catheter was flushed and manipulated but could not engage the left coronary ostium. This catheter was exchanged for a JL 5 diagnostic catheter. It was manipulated under fluoroscopy to selectively engaged the left coronary ostium. Left coronary angioplasty was performed in different angiographic projections. Catheter was removed over the wire. Radial sheath was flushed. The right radial sheath was removed and a TR band was placed with excellent patent hemostasis was achieved. The patient tolerated the procedure well. Patient was transported back to the post catheterization holding area in stable condition. Angiographic images were reviewed in detail. Technical details Contrast used: 60 mL of Isovue Blood loss: Less than 10 mL Complications: None Radiation: 0.217 mGy HEMODYNAMICS: Aortic Pressure: 107/55 mmHg. LV pressure: 110/4 mmHg. LVEDP 14 mmHg. There was no significant gradient across the aortic valve. SELECTIVE CORONARY ARTERIOGRAPHY: LEFT MAIN: The left main is short and large caliber vessel. It bifurcates into the LAD and circumflex. Left main appears angiographically normal. LEFT ANTERIOR DESCENDING CORONARY ARTERY: LAD is a large caliber vessel which wraps around to the apex. Proximal LAD appears angiographically normal. Mid LAD appears angiographically normal. Distal LAD appears angiographically normal. It gives rise to a medium diagonal branch which appears angiographically normal LEFT CIRCUMFLEX CORONARY ARTERY: It is nondominant vessel. Left circumflex is a moderate caliber vessel. It appears angiographically normal. RIGHT CORONARY ARTERY: Dominant vessel. The right coronary artery is a large caliber vessel which gives PDA and PLV branch. Proximal and mid and distal RCA appears angiographically normal. PDA and PL branch appears angiographically normal. IMPRESSION: Angiographically normal coronary arteries as described above. Normal left sided filling pressures PLAN: Aggressive risk factor modification per most recent ACC/AHA guidelines. 125 cc fluids for 4 hours Follow-up in the office in 1-2 weeks. Performing Physician Du Gutierrez MD, FACC, RPVI Thank you for allowing [facility] to participate in this patient's care. Feel free to reach out in case of any followup questions.
[2024-02-02 11:46] VITALS: RESP 14; TEMP 97.7
[2024-02-02 16:24] VITALS: BP 111/76; PULSE 81
== END 2024-02-02 17:00 | disposition home or self-care (01) ==
LOC: EC 12:30 → 6NMEDSUR 15:22
PROVIDERS: ADMIT Family Medicine; ATTEND Family Medicine
DX: R07.89 Other chest pain (principal); E06.3 Autoimmune thyroiditis; E78.5 Hyperlipidemia, unspecified; R00.0 Tachycardia, unspecified; R94.39 Abnormal result of other cardiovascular function study; M25.512 Pain in left shoulder; G44.40 Drug-induced headache, not elsewhere classified, not intractable; R11.10 Vomiting, unspecified; T46.3X5A Adverse effect of coronary vasodilators, initial encounter; E66.9 Obesity, unspecified; Z68.37 Body mass index [BMI] 37.0-37.9, adult; Z79.82 Long term (current) use of aspirin; Z79.899 Other long term (current) drug therapy; Z88.0 Allergy status to penicillin; Z88.1 Allergy status to other antibiotic agents; Z88.2 Allergy status to sulfonamides; Z87.891 Personal history of nicotine dependence; Z86.69 Personal history of other diseases of the nervous system and sense organs; Z87.898 Personal history of other specified conditions
CPT/HCPCS: 96376 ×2; 96361 ×3; 96372 ×4; 96374; 96375; 99285; 36415; 94760; 93005; 93458; 85379; 83880; 80061; 80053 ×2; 83735; 84484; 85025 ×2; 85610; 85730; 71046; G0378 ×4; C1769 ×2; C1894; C1887; J2250; J1644 ×6; J2405 ×2; J2001; J3010; J3490 ×3; Q9967